=== PATIENT | female | born 1990 | race Caucasian/White ===

== ENCOUNTER 2018-08-20 07:50 | Inpatient (IN) | payer OTHER, SELFPAY ==
[2013-07-17 10:24] VITALS: BMI 31.5
[2018-08-20 08:15] VITALS: BMI 29.8
[2018-08-20] MEDS: Lactated Ringers 1,000 ML 50 ML IV (08:15)
[2018-08-20 08:33] LABS: Hematocrit 36.8 % (37-47); Mean Corp Hgb Conc 32.6 g/gl (32-36); Platelet Count 284 K/mm3 (150-450); RBC Distribution Width CV 14.9 % (11.6-14.6); RBC Distribution Width SD 49.1 fl (35.1-43.9); White Blood Count 18.6 K/mm3 (4.4-11.0)
[2018-08-20 08:34] LABS: Scan Indicated on CBC? Y/N NO
[2018-08-20] MEDS: Oxytocin 30 units/NS 500 ml 30 UNITS/500 ML IV.SOLN 334 UNITS IV ×2 (08:35→13:00)
--- NOTE | 2018-08-20 08:59 | PCM.OB.VAG ---
- Problem List (1) Active labor at term Status: Acute (2) History of depression Status: Acute (3) Herpes genitalis Status: Acute (4) Anemia Status: Acute Vaginal Delivery Maternal Presentation: Active Labor, Spontaneous Rupture of Membranes Amniotic Membrane Rupture Type: Spontaneous at home Rupture of Membrane time: Around 5 AM Amniotic Fluid Description: Clear Final GREER: 08/14/18 Gestational age: 40 Weeks and 6 Days Date of Procedure: 08/20/18 Pre-Operative Diagnosis: 40w6d gestation, active labor, SROM at home Post-Operative Diagnosis: As above Surgery/ Procedure Performed: Spontaneous Vaginal Delivery Type of Anesthesia: Local with 1% lidocaine Description of Procedure: Patient began having contractions this morning and believes her water broke for clear fluid around 5 AM. She presented at 8 cm dilated. Progressed quickly to complete. Pushed with 2 contractions and head, anterior shoulder, and posterior shoulder were delivered without force or delay. There was a loose nuchal cord x 2 around the infant's neck. Delivered through the nuchal cord. Viable female was placed on maternal abdomen. Cord was clamped and cut after 60 sec delay by the father the baby. Placenta was delivered intact with fundal massage. Placenta was noted to be normal with a three-vessel cord. She had a second-degree perineal laceration that was repaired in the usual fashion using 3-0 Vicryl after injecting 1% lidocaine. Estimated blood loss was 250 cc. Apgars were 9 and 10. Presentation: Vertex Placental Delivery Description: Expressed Cord Vessel Description: 3 Vessels Nuchal Cord Compression: Without compression Cord Entanglement: Around neck x 2, loose Estimated Blood Loss: 250 Infant A gender: Female (1 minute): 9 (5 minute): 10 Episiotomy Description: None Laceration: 2nd degree Medications given after delivery: IV Pitocin Complications: None
[2018-08-20] MEDS: Oxytocin 30 units/NS 500 ml 30 UNITS/500 ML IV.SOLN 167 UNITS IV (09:05)
--- NOTE | 2018-08-20 09:09 | HP.PCM_ITS ---
- Problem List (1) Active labor at term Status: Acute (2) History of depression Status: Acute (3) Herpes genitalis Status: Acute (4) Anemia Status: Acute History Date of Admission: 08/20/18 Final GREER: 08/14/18 Final GREER Source: [place] <20 weeks Gestational age: 40 Weeks and 6 Days History of this : This is a 28 year-old, G2, P1001, at 40 weeks gestational age who presented in labor at 8 cm dilated. She began having contractions this morning and SROM'd at home for clear fluid. Allergies No Known Allergies Allergy (Unverified 07/17/13 10:26) Home Medications: Home Medications Acetaminophen [Tylenol Extra Strength] 1,000 mg PO Q6H PRN PRN 07/17/13 Acyclovir [Zovirax] 400 mg PO BID 07/17/13 Naproxen [Naprosyn] 250 - 500 mg PO Q8H PRN PRN #60 tablet 07/17/13 Vits [Prenatabs FA ] 1 tablet PO DAILY 07/17/13 Senna/Docusate Sodium [Senokot-S] 1 - 2 tablet PO DAILY PRN PRN #20 tablet 07/17/13 Smoking Status: Never smoker Number of Fetus(es): 1 Heart Tracing: Category 1 History Past Pregnancies: Past Pregnancies Delivery Date Name GA/Weeks Outcome Route Weight Gender Labor Length Anesthesia Delivery Location Provider FOB term Labs: GBS neg, 1 hr GTT 107, GC/CT neg, UDS neg, Syphilis neg, RI, HepB neg, HIV NR, Rh pos, antibody screen neg Expected Infant Delivery Method: Spontaneous Vaginal Review of Systems Unable to obtain accurate/complete ROS d/t: Patient complete and pushing Physical Exam General: Alert, - - Uncomfortable with ctx's HEENT: Atraumatic Lungs: - - No increased resp effort Abdomen: Gravid Extremities:: No edema Neurological: Neuro grossly intact DISPATCHER REFINERY: Normal external genitalia Presentation: Cephalic Assessment/Plan All Active Problems Active labor at term (Acute) History of depression (Acute) Herpes genitalis (Acute) Anemia (Acute) This is a 28 year-old, G2, P1, at 40 weeks gestational age who presented in labor at 8 cm dilated and progressed quickly to complete. - Admitted for delivery - GBS neg - H/o HSV: Was on prophylaxis. Pt denies recent outbreak or prodromal symptoms, and no lesions noted on exam - Routine intrapartum care
[2018-08-20] MEDS: Ibuprofen 600 MG Tablet PO ×2 (09:33→18:23)
[2018-08-20] MEDS: Methylergonovine 0.2 MG/ML Ampul IM (11:22)
[2018-08-20] MEDS: HYDROmorphone 0.5 MG/0.5 ML SYRINGE IV (11:45)
[2018-08-20] MEDS: miSOPROStol 200 MCG Tablet 1000 MCG RECTAL (11:57)
--- NOTE | 2018-08-20 12:04 | PCM.PN.BLA ---
Progress Note RN called for heavy bleeding and clots. At bedside to examine patient. EBL of PPH 1000cc. Methergine x 1 given by RN. Vitals stable. Pt well appearing and has no complaints. Denies lightheadedness or dizziness. Fundus palpates firm at U. Discussed uterine exploration to assess for retained products and pt agreeable. Dilaudid 0.5mg IV x 1 given for pain control. External exam performed and no additional lacerations noted to be bleeding. Uterus explored x 1 with no retained products, and removal of about 800cc of blood and blood clot within the uterus. Fundus and lower uterine segment firm. Will check CBC in 1 hr and in the AM. Second bag of pitocin hung and 1000mcg of Cytotec placed rectally. Discussed with pt and bleeding likely secondary to 9lb infant and precipitous delivery. All questions answered.
[2018-08-20 13:06] VITALS: BP 103/66; PULSE 67; RESP 18; TEMP 36.9
[2018-08-20 14:52] LABS: Hematocrit 31.5 % (37-47); Hemoglobin 10.2 g/dl (12.0-15.0); Mean Corp Hgb Conc 32.4 g/gl (32-36); Mean Corpuscular Hgb 29.9 pg (27.0-32.0); Mean Corpuscular Volume 92.4 fL (81-99); Platelet Count 270 K/mm3 (150-450); RBC Distribution Width CV 15.1 % (11.6-14.6); Red Blood Count 3.41 M/mm3 (4.2-5.4); White Blood Count 25.6 K/mm3 (4.4-11.0)
[2018-08-20 14:53] LABS: Scan Indicated on CBC? Y/N NO
[2018-08-20 15:30] VITALS: BP 106/59; PULSE 76; RESP 18; TEMP 37.3
[2018-08-20] MEDS: 0.9% Saline Lock 10 ML Syringe IV (15:35)
[2018-08-20 20:37] VITALS: BP 99/60; PULSE 809; RESP 18; TEMP 36.4
[2018-08-20] MEDS: Acetaminophen 500 MG Tablet 1000 MG PO (21:05)
[2018-08-21] VITALS: BP 87/39; PULSE 61; RESP 16; TEMP 36.1; O2SAT 99
[2018-08-21 04:00] VITALS: BP 90/52; PULSE 65; RESP 18; TEMP 36.4
[2018-08-21] MEDS: Ibuprofen 600 MG Tablet PO ×2 (06:12→11:41)
[2018-08-21 06:20] LABS: Hematocrit 26.7 % (37-47); Hemoglobin 8.6 g/dl (12.0-15.0); Mean Corp Hgb Conc 32.2 g/gl (32-36); Mean Platelet Vol. 11.5 fl (6.2-12.0); Platelet Count 244 K/mm3 (150-450); RBC Distribution Width CV 14.9 % (11.6-14.6); RBC Distribution Width SD 48.4 fl (35.1-43.9); Red Blood Count 2.87 M/mm3 (4.2-5.4); White Blood Count 16.4 K/mm3 (4.4-11.0)
[2018-08-21 06:21] LABS: Scan Indicated on CBC? Y/N NO
--- NOTE | 2018-08-21 07:34 | PN.OBGYN_ITS ---
Patient Problems: Active and Suspected Problems Active labor at term (Acute) History of depression (Acute) Herpes genitalis (Acute) Anemia (Acute) Subjective: Patient is doing well today and she has no complaints. She feels ready to go home. She is breast-feeding without difficulty. She is ambulating without any lightheadedness or dizziness. She is spontaneously voiding without difficulty. Lochia has decreased and is normal. She is tolerating a diet without nausea or vomiting. She denies chest pain, shortness of breath, leg pain. - Physical Exam General: Alert, No apparent distress HEENT: Atraumatic Lungs: - - No increased resp effort Abdomen: Soft, Non Tender, - - FF@U-1 Extremities: No edema, No Calf Tenderness Skin: No rashes Neurological: Neuro grossly intact Psych/Mental Status: Normal Affect, Appropriate Vital Signs Temp Pulse Resp BP Pulse Ox 97.6 F L 65 18 90/52 L 99 08/21/18 04:00 08/21/18 04:00 08/21/18 04:00 08/21/18 04:00 08/21/18 00:00 Oxygen Delivery Method Room Air Weight: 184 lb 11.958 oz Body Mass Index (BMI) 29.8 Intake and Output for Last 24 Hours 08/19/18 08/20/18 08/21/18 23:59 23:59 23:59 Intake Total 2211 / 2211 Balance 2211 / 2211 Laboratory Tests Past 24 Hrs 08/20/18 08/20/18 08/20/18 08:15 08:15 13:10 WBC 18.6 H 25.6 H RBC 4.00 L 3.41 L Hgb 12.0 10.2 L Hct 36.8 L 31.5 L MCV 92.0 92.4 MCH 30.0 29.9 MCHC 32.6 32.4 RDW 14.9 H 15.1 H RDW Differential 49.1 H 51.0 H Plt Count 284 270 MPV 12.0 12.0 Blood Type O POSITIVE Antibody Screen NEGATIVE 08/21/18 06:05 WBC 16.4 H RBC 2.87 L Hgb 8.6 L Hct 26.7 L MCV 93.0 MCH 30.0 MCHC 32.2 RDW 14.9 H RDW Differential 48.4 H Plt Count 244 MPV 11.5 Blood Type Antibody Screen Medical Necessity - Tobacco Use Smoking Status: Never smoker Assessment/Plan All Active Problems Active labor at term (Acute) History of depression (Acute) Herpes genitalis (Acute) Anemia (Acute) PPD#1 s/p - Had precipitous delivery followed by PPH. VSS. Hgb 8.6 this AM from 12 pre- delivery. Pt has no symptoms of anemia and bleeding has decreased and is now normal lochia. Discussed with pt to continue iron supplement daily at home and reviewed bleeding precautions - Doing well - - PPBC: Condoms - Dispo: D/c home today. Reviewed discharge instructions with the pt
--- NOTE | 2018-08-21 07:34 | PCM.DCVAG ---
Discharge Diet: No Restrictions Discharge Activity: Return to Normal Activity, May Drive, May Shower May resume sexual activity in: 6 weeks Weight Bearing Status: Weight bearing as tolerated Lifting Restrictions: None Call your doctor if you observe: Fever of 101 or Higher, Inability to urinate, Inability to have a bowel movement, Using more than one pad per hour, Shortness of breath, Dizziness, Fainting spells, Chest pain, Increased palpitations (irregular heartbeat), Calf discomfort, Uncontrolled pain Cleanse incision/area with: Soap & Water Instructions: After a Vaginal Additional Instructions: If you experience any of the following, contact your healthcare provider. Bleeding that soaks a pad every hour for 2 hours Fever 100.4 or higher Unrelieved incision or abdominal pain Swelling, redness, discharge or bleeding from your incision or episiotomy site Your incision begins to separate Problems urinating (including inability to urinate or burning while urinating). Visual changes Severe headache Flu-like symptoms Pain or redness in one of both of your breasts Pain, warmth, tenderness or swelling in your legs, especially the calf area Frequent nausea and vomiting Symptoms of depression or anxiety If you experience any of the following, call 911 or go to the nearest Emergency Room. Chest pain Problems breathing Seizure activity Partial or complete paralysis of a body part, slurred speech, weakness or drooping of the face, or a sudden inability to walk or hold your balance Allergies/Adverse Reactions: Allergies No Known Allergies Allergy (Verified 08/20/18 10:07) Medications to take at Discharge Acyclovir [Zovirax] 400 mg PO BID 07/17/13 Vits [Prenatabs FA ] 1 tablet PO DAILY 07/17/13 Ascorbic Acid/Multivit-Min [Emergen-C 1,000 mg Packet] 1,000 mg PO 08/20/18 Famotidine [Pepcid] 20 mg PO DAILY 08/20/18 Ferrous Sulfate 325 mg PO 08/20/18 Please Follow Up With: Shani Marley DO When: In 4-6 weeks for a visit, and in 1-2 weeks if you would like to come in. Primary Care Physician: Care Physician,No Primary [Primary Care Provider] - Test Results: Test results from this visit will be discussed in further detail at your follow-up appointment, if applicable.
--- NOTE | 2018-08-21 07:37 | DCINST_ITS ---
Discharge Diet: No Restrictions Discharge Activity: Return to Normal Activity, May Drive, May Shower May resume sexual activity in: 6 weeks Weight Bearing Status: Weight bearing as tolerated Lifting Restrictions: None Call your doctor if you observe: Fever of 101 or Higher, Inability to urinate, Inability to have a bowel movement, Using more than one pad per hour, Shortness of breath, Dizziness, Fainting spells, Chest pain, Increased palpitations (irregular heartbeat), Calf discomfort, Uncontrolled pain Cleanse incision/area with: Soap & Water Instructions: After a Vaginal Additional Instructions: If you experience any of the following, contact your healthcare provider. * Bleeding that soaks a pad every hour for 2 hours * Fever 100.4 or higher * Unrelieved incision or abdominal pain * Swelling, redness, discharge or bleeding from your incision or episiotomy site * Your incision begins to separate * Problems urinating (including inability to urinate or burning while urinating). * Visual changes * Severe headache * Flu-like symptoms * Pain or redness in one of both of your breasts * Pain, warmth, tenderness or swelling in your legs, especially the calf area * Frequent nausea and vomiting * Symptoms of depression or anxiety If you experience any of the following, call 911 or go to the nearest Emergency Room. * Chest pain * Problems breathing * Seizure activity * Partial or complete paralysis of a body part, slurred speech, weakness or drooping of the face, or a sudden inability to walk or hold your balance Allergies/Adverse Reactions: Allergies No Known Allergies Allergy (Verified 08/20/18 10:07) Medications to take at Discharge Acyclovir [Zovirax] 400 mg PO BID 07/17/13 Vits [Prenatabs FA ] 1 tablet PO DAILY 07/17/13 Ascorbic Acid/Multivit-Min [Emergen-C 1,000 mg Packet] 1,000 mg PO 08/20/18 Famotidine [Pepcid] 20 mg PO DAILY 08/20/18 Ferrous Sulfate 325 mg PO 08/20/18 Please Follow Up With: Shani Marley DO When: In 4-6 weeks for a visit, and in 1-2 weeks if you would like to come in. Primary Care Physician: Care Physician,No Primary [Primary Care Provider] - Test Results: Test results from this visit will be discussed in further detail at your follow- up appointment, if applicable.
[2018-08-21 09:30] VITALS: BP 102/64; PULSE 75; RESP 16; TEMP 35.7
[2018-08-21 09:40] VITALS: BP 101/67; PULSE 74; RESP 17; RESP 18; TEMP 36
[2018-08-21] MEDS: Senna/Docusate Sodium 1 Tablet PO (11:41)
[2018-08-21 14:00] VITALS: BP 106/69; PULSE 82; RESP 16; TEMP 36.6
--- NOTE | 2018-08-21 14:15 | CASEMGMT ---
Social Work Referral Date: 08/20/18 Date of Assessment: 08/21/18 Reason for Consult: Mother of baby (MOB) with history of depression and suicidal ideation. Informant: MOB, Father of baby (FOB), Chart, and Nursing staff. Personal Status Mentation: MOB/FOB A&Ox3 Present during assessment: MOB, FOB, and Francis (MOB and FOB?s first child). Hx : 2 Hx Para: 1 Gender: Female Name: Lisa Carter (1min): 9 (5min): 10 Care: Adequate Alleged father: Mckinley Carter Alleged father involved: Yes Length of Relationship with alleged father of baby: MOB and FOB have been in a relationship since 2009 and have been for 4 years. Number of Children in the home: 1 and now this infant will make 2 children living at home with MOB and FOB. Custody Comments: MOB and FOB have full custody of first child, Francis and now this infant. Francis is 5 years old and shares maternity and paternity with this infant. Living Arrangements: MOB and FOB along with Francis and now this live in their own home. Education: MOB is working towards a [employer] education in nursing. Employment: MOB is currently unemployed and taking the semester off schooling to be with this infant and work through transition. FOJosesito works full-time at [employer] and is able to have flexible hours and can come and assist MOB during the day if needed. Family Dynamics/Relationships: MOB reporting a positive relationship with FOB. FOB then asked to leave the room. This forensic social worker then inquiring about MOB?s safety within the home. MOB denies any emotional or physical abuse. Supports: MOB identifies FOB and paternal grandparents as main supports. Substance Abuse Hx and Current Pattern of Use (FOB not present during below questions) Alcohol: MOB reports to drink wine socially prior to becoming with this infant. MOB defining socially as 1-2 glasses 2-4 days a week. Methamphetamine: MOB denies any abuse. Tobacco: MOB reporting to have a history of smoking. MOB defining history as back in 2011 and to have not smoked since then. Cocaine: MOB denies any abuse. Marijuana: MOB denies any abuse. Prescriptions Drugs: MOB denies any abuse. Heroin: MOB denies any abuse. Comment: MOB does have a negative tox screen on 18. No tox screen ordered for . Mental Health Hx and Current Status (FOB not present during below conversation/questions). Comment: This forensic social worker broaching topic of MOB?s history of depression. MOB confirming to have a history of depression back in 2011. MOB reporting to have made some poor life choices back in 2012 that include and over dose of Xanax and a suicidal attempt. MOB reporting to have then spent 3 days in an inpatient facility because of the suicide attempt. MOB denies any current thoughts or attempts of suicide and that the only attempt was in 2012. MOB is reporting to have had a serious of suicidal thoughts back in 2012 that lead to the suicide attempt. MOB able to identify safety factors such as FOB, Francis and now this infant. MOB reporting to want to keep living for MOB?s family and to be currently making better choices. MOB reporting to have had a negative influence from MOB?s mother. MOB reporting that MOB?s mother does not live around MOB and is not involved much in MOB?s life anymore. This forensic social worker inquiring if MOB has any concerns on returning to home. MOB identifying currently struggling with anxiety. This forensic social worker asking what triggers MOB?s anxiety. MOB reporting to get anxious when thinking about ability to be able to care for Francis and now this . MOB reporting that was planned for this infant and accepted. MOB reporting to have a history of counseling and that counseling did help in the past. This forensic social worker inquiring about setting up a counseling appointment for MOB in the next few weeks. MOB declining a counseling appointment. MOB reporting to be planning to discuss anxiety with primary care physician to see what, if any medications MOB would be able to take, as MOB is planning to breastfeed. MOB reporting to be able to work through anxiety by calling FOB and knowing that FOB is able to come and assist MOB if needed. MOB denies any history of depression with Francis. This forensic social worker did educate MOB on the risk factors associated with depression as well as signs and symptoms of depression. MOB open to this forensic social worker providing MOB with list of counseling agencies as well as information about depression. This forensic social worker also broached topic of Help me Grow as a support for MOB within the home. MOB is open to a Help Me Grow referral. MOB denies any current depression and is reporting to currently not be taking any antidepressants. This forensic social worker did also take time to identify MOB?s strength in bringing up anxiety as something that MOB is currently working though. Items/Skills List for Infants Care Supplies: MOB reporting to have all needed supplies including a crib, bassinet, diapers, cloths, and breast pump along with other needed supplies. Bonding With Infant: MOB reporting to feel a connection with infant. MOB reporting that connection is different with this then first but not identifying any negative attachment and to feel ?love? towards . Observed Maternal/Paternal Child interaction: in bassinet during conversation. MOB did look towards infant often during conversation. Emotional Assessment: MOB presenting with a positive affect and engaged in conversation. Control: MOB not sure at this time. Resources JFS: N/A WIC: N/A People to People: N/A Community Action: N/A Help Me Grow: Referral to be made. Children Protective Services Hx: N/A Transportation: MOB reporting no transportation concerns. Comments: MOB provided with education on safe sleeping, depression, Help Me Grow, counseling agencies, and support groups. Intervention: Help Me Grow referral made to PHYSIOLOGIST social work student. Plan: MOB and to discharge to home with MARCK Rolon
--- NOTE | 2018-08-21 14:38 | CASEMGMT ---
Addendum entered by Sarah Barraza 08/21/18 17:30: Reviewed and approved below SEO TEAM LEAD social work student documentation. MARCK Stafford Original Note: Social Work Labor and Delivery Electronically and securely completed a Help Me Grow referral through [facility] for this family's . No other services needed or indicated. -Emani Ramos, SEO TEAM LEAD Student Supervisor [employer].
--- OUTSIDE RECORDS SUMMARY | 2018-10-22 15:35 | XMS RPT_ITS ---
:1990 Author Organization OHIP Care Team Providers Name Role Phone Yulia Marley Admitting Unavailable Wiswell Yulia Attending Unavailable Ayaka, Yulia Referring Unavailable Primay Care Physicia, No Primary Care Unavailable BROOKE CHOUDHARY Attending Unavailable BROOKE CHOUDHARY Referring Unavailable SABINO DIA (CNM) Attending Unavailable SOUTH SABINO (CNM) Referring Unavailable GABBY, MARIA DE JESUS (CNM) Attending Unavailable SOUTH SABINO (CNM) Attending Unavailable DIA SABINO (CNM) Referring Unavailable ADELINA HELMS Attending Unavailable SOUTH SABINO (CNM) Referring Unavailable NEYKATHRYN MANSFIELD Attending Unavailable WISWELL, YULIA Attending Unavailable WISWELL, YULIA Referring Unavailable DIA, SABINO (CNM) Attending Unavailable GABBY, MARIA DE JESUS (CNM) Attending Unavailable DIA, SABINO (CNM) Attending Unavailable WISWELL, YULIA Attending Unavailable GABBY, MARIA DE JESUS (CNM) Attending Unavailable GABBY, MARIA DE JESUS (CNM) Referring Unavailable DIA, SABINO (CNM) Attending Unavailable GABBY, MARIA DE JESUS (CNM) Attending Unavailable GABBY, MARIA DE JESUS (CNM) Attending Unavailable DIA, SABINO (CNM) Attending Unavailable DIA, SABINO (CNM) Attending Unavailable GABBY, MARIA DE JESUS (CNM) Attending Unavailable PROBLEMS PROBLEMS DATE TYPE CONDITION / CODE ATTENDING STATUS SOURCE 06/15/2018 Active Anemia NA Active [facility] complicating [facility] , third Repository trimester / O99.013(ICD-10) 05/15/2018 Active 27 weeks gestation NA Active [facility] of / [facility] Z3A.27(ICD-10) Repository 04/20/2018 Active Unknown / NEYHART Active [facility] UNK(Unknown) EL, [facility] KATHRYN Repository 02/05/2018 Active 12 weeks gestation NA Active [facility] of / [facility] Z3A.12(ICD-10) Repository 01/11/2018 Active 9 weeks gestation NA Active [facility] of / [facility] Z3A.09(ICD-10) Repository 01/11/2018 Active Encounter for NA Active [facility] supervision of [facility] normal first Repository , first trimester / Z34.01(ICD-10) PROCEDURES PROCEDURES No Procedure Records FoundRESULTS RESULTS PROGRESS Observed: 08/23/2018 Status: COMPLETED Source: [place] 10:45 AM [facility] REPOSITORY HNO ID: [id number] Author: Lyndsey Nickerson LPN Service: (none) Author Type: (none) Type: Progress Notes Filed: 08/23/2018 10:48 AM Note Text: Pt delivered via at [facility] on 08/20/[address] Marley. See Ob Outcome note. Pt called and scheduled her 6wk PP appt and had no voiced c/o documented. Lyndsey Nickerson LPN DISCHARGE INSTRUCTION Observed: 08/21/2018 Status: F Source: [place] 7:37 AM [facility] REPOSITORY [facility] Medical Records Department [address] [place] [address] Instructions for Home/Discharge Instructions 08/21/18 0734 MR#: [id number] Acct: [id number] Name: IVETTE SADLER Rep #: [id number] : 1990 28 From: Yulia Marley DO PCP: Care Physician, No Primary Status: ADM IN Discharge Diet: No Restrictions Discharge Activity: Return to Normal Activity, May Drive, May Shower May resume sexual activity in: 6 weeks Weight Bearing Status: Weight bearing as tolerated Lifting Restrictions: None Call your doctor if you observe: Fever of 101 or Higher, Inability to urinate, Inability to have a bowel movement, Using more than one pad per hour, Shortness of breath, Dizziness, Fainting spells, Chest pain, Increased palpitations (irregular heartbeat), Calf discomfort, Uncontrolled pain Cleanse incision/area with: Soap AND Water Instructions: After a Vaginal Additional Instructions: If you experience any of the following, contact your healthcare provider. * Bleeding that soaks a pad every hour for 2 hours * Fever 100.4 or higher * Unrelieved incision or abdominal pain * Swelling, redness, discharge or bleeding from your incision or episiotomy site * Your incision begins to separate * Problems urinating (including inability to urinate or burning while urinating). * Visual changes * Severe headache * Flu-like symptoms * Pain or redness in one of both of your breasts * Pain, warmth, tenderness or swelling in your legs, especially the calf area * Frequent nausea and vomiting * Symptoms of depression or anxiety If you experience any of the following, call 911 or go to the nearest Emergency Room. * Chest pain * Problems breathing * Seizure activity * Partial or complete paralysis of a body part, slurred speech, weakness or drooping of the face, or a sudden inability to walk or hold your balance Allergies/Adverse Reactions: Allergies No Known Allergies Allergy (Verified 08/20/18 10:07) Medications to take at Discharge Acyclovir [Zovirax] 400 mg PO BID 07/17/13 Vits [Prenatabs FA ] 1 tablet PO DAILY 07/17/13 Ascorbic Acid/Multivit-Min [Emergen-C 1,000 mg Packet] 1,000 mg PO 08/20/18 Famotidine [Pepcid] 20 mg PO DAILY 08/20/18 Ferrous Sulfate 325 mg PO 08/20/18 Please Follow Up With: Yulia Marley DO When: In 4-6 weeks for a visit, and in 1-2 weeks if you would like to come in. Primary Care Physician: Care Physician,No Primary [Primary Care Provider] - Test Results: Test results from this visit will be discussed in further detail at your follow-up appointment, if applicable. 08/21/18 0737 <Electronically signed by Yulia Marley DO> Date Yulia Marley DO CC: No Primary Care Physician Signed CBC-COMPLETE BLOOD CNT Collected: 08/21/2018 Status: F Source: [place] NO DIFF 6:05 AM [facility] REPOSITORY TYPE CODE TESTS RESULT OUT OF RANGE REFERENCE UNITS LAB L100.1000 4.4-11.0 K/mm3 High WBC 16.4 LAB L100.1200 4.2-5.4 M/mm3 Low RBC 2.87 LAB L100.1300 12.0-15.0 g/dl Low HGB 8.6 LAB L100.1400 37-47 % Low HCT 26.7 LAB L100.1500 81-99 fL Normal MCV 93.0 LAB L100.1600 27.0-32.0 pg Normal MCH 30.0 LAB L100.1700 32-36 g/gl Normal MCHC 32.2 LAB L100.1810 11.6-14.6 % High RDW CV 14.9 LAB L100.1820 35.1-43.9 fl High RDW SD 48.4 LAB L100.1900 150-450 K/mm3 Normal PLT 244 LAB L100.2000 6.2-12.0 fl Normal MPV 11.5 Performed By: #### L100.0500 #### [facility] [address] [place] [address]. [place], [place], [address] CBC-COMPLETE BLOOD CNT Collected: 08/20/2018 Status: F Source: [place] 1:10 PM [facility] REPOSITORY TYPE CODE TESTS RESULT OUT OF RANGE REFERENCE UNITS LAB L100.1000 4.4-11.0 K/mm3 High WBC 25.6 LAB L100.1200 4.2-5.4 M/mm3 Low RBC 3.41 LAB L100.1300 12.0-15.0 g/dl Low HGB 10.2 LAB L100.1400 37-47 % Low HCT 31.5 LAB L100.1500 81-99 fL Normal MCV 92.4 LAB L100.1600 27.0-32.0 pg Normal MCH 29.9 LAB L100.1700 32-36 g/gl Normal MCHC 32.4 LAB L100.1810 11.6-14.6 % High RDW CV 15.1 LAB L100.1820 35.1-43.9 fl High RDW SD 51.0 LAB L100.1900 150-450 K/mm3 Normal PLT 270 LAB L100.2000 6.2-12.0 fl Normal MPV 12.0 Performed By: #### L100.0500 #### [facility] [address] [place], [address] HISTORY AND PHYSICAL Observed: 08/20/2018 Status: F Source: [place] EXAM 9:11 AM [facility] REPOSITORY [facility] Medical Records Department [address] [place] [address] History and Physical 08/20/18 0905 MR#: [id number] Acct: [id number] Name: IVETTE SADLER Rep #: [id number] : 1990 28 From: Yulia Marley DO PCP: Care Physician, No Primary Status: ADM IN Y Location: [place] [id number] - Problem List (1) Active labor at term Status: Acute (2) History of depression Status: Acute (3) Herpes genitalis Status: Acute (4) Anemia Status: Acute History Date of Admission: 08/20/18 Final GREER: 08/14/18 Final GREER Source: US <20 weeks Gestational age: 40 Weeks and 6 Days History of this : This is a 28 year-old, G2, P1001, at 40 weeks gestational age who presented in labor at 8 cm dilated. She began having contractions this morning and SROM'd at home for clear fluid. Allergies No Known Allergies Allergy (Unverified 07/17/13 10:26) Home Medications: Home Medications Acetaminophen [Tylenol Extra Strength] 1,000 mg PO Q6H PRN PRN 07/17/13 Acyclovir [Zovirax] 400 mg PO BID 07/17/13 Naproxen [Naprosyn] 250 - 500 mg PO Q8H PRN PRN #60 tablet 07/17/13 Vits [Prenatabs FA ] 1 tablet PO DAILY 07/17/13 Senna/Docusate Sodium [Senokot-S] 1 - 2 tablet PO DAILY PRN PRN #20 tablet 07/17/13 Smoking Status: Never smoker Number of Fetus(es): 1 Heart Tracing: Category 1 History Past Pregnancies: Past Pregnancies Delivery Name GA/Weeks Outcome Route WeiInfant GeLabor LenAnesthesiDelivery Provider FOB Date ght nder gth a Location Labs: GBS neg, 1 hr GTT 107, GC/CT neg, UDS neg, Syphilis neg, RI, HepB neg, HIV NR, Rh pos, antibody screen neg Expected Infant Delivery Method: Spontaneous Vaginal Review of Systems Unable to obtain accurate/complete ROS d/t: Patient complete and pushing Physical Exam General: Alert, - - Uncomfortable with ctx's HEENT: Atraumatic Lungs: - - No increased resp effort Abdomen: Gravid Extremities:: No edema Neurological: Neuro grossly intact MULTI DISCIPLINED LANGUAGE ANALYST: Normal external genitalia Presentation: Cephalic Assessment/Plan All Active Problems Active labor at term (Acute) History of depression (Acute) Herpes genitalis (Acute) Anemia (Acute) This is a 28 year-old, G2, P1, at 40 weeks gestational age who presented in labor at 8 cm dilated and progressed quickly to complete. - Admitted for delivery - GBS neg - H/o HSV: Was on prophylaxis. Pt denies recent outbreak or prodromal symptoms, and no lesions noted on exam - Routine intrapartum care 08/20/18 0911 <Electronically signed by Yulia Marley DO> Date Yulia Marley DO Cosigner Signature: Date (if applicable) CC: No Primary Care Physician; Yulia Marley DO Signed OPERATIVE REPORT Observed: 08/20/2018 Status: F Source: [place] 9:05 AM [facility] REPOSITORY [facility] Medical Records Department [address] [place] [address] Operative Report 08/20/18 0859 MR#: [id number] Acct: [id number] Name: IVETTE SADLER Rep #: [id number] : 1990 28 From: Yulia Marley DO PCP: Care Physician, No Primary Status: ADM IN Y Location: [id number] - Problem List (1) Active labor at term Status: Acute (2) History of depression Status: Acute (3) Herpes genitalis Status: Acute (4) Anemia Status: Acute Vaginal Delivery Maternal Presentation: Active Labor, Spontaneous Rupture of Membranes Amniotic Membrane Rupture Type: Spontaneous at home Rupture of Membrane time: Around 5 AM Amniotic Fluid Description: Clear Final GREER: 08/14/18 Gestational age: 40 Weeks and 6 Days Date of Procedure: 08/20/18 Pre-Operative Diagnosis: 40w6d gestation, active labor, SROM at home Post-Operative Diagnosis: As above Surgery/ Procedure Performed: Spontaneous Vaginal Delivery Type of Anesthesia: Local with 1% lidocaine Description of Procedure: Patient began having contractions this morning and believes her water broke for clear fluid around 5 AM. She presented at 8 cm dilated. Progressed quickly to complete. Pushed with 2 contractions and head, anterior shoulder, and posterior shoulder were delivered without force or delay. There was a loose nuchal cord x 2 around the infant's neck. Delivered through the nuchal cord. Viable female infant was placed on maternal abdomen. Cord was clamped and cut after 60 sec delay by the father the baby. Placenta was delivered intact with fundal massage. Placenta was noted to be normal with a three-vessel cord. She had a second-degree perineal laceration that was repaired in the usual fashion using 3- 0 Vicryl after injecting 1% lidocaine. Estimated blood loss was 250 cc. Apgars were 9 and 10. Presentation: Vertex Placental Delivery Description: Expressed Cord Vessel Description: 3 Vessels Nuchal Cord Compression: Without compression Cord Entanglement: Around neck x 2, loose Estimated Blood Loss: 250 A gender: Female (1 minute): 9 (5 minute): 10 Episiotomy Description: None Laceration: 2nd degree Medications given after delivery: IV Pitocin Complications: None 08/20/18 0905 <Electronically signed by Yulia Marley DO> Date Yulia Marley DO CC: No Primary Care Physician; Yulia Marley DO Signed CBC-COMPLETE BLOOD CNT Collected: 08/20/2018 Status: F Source: [place] 8:15 AM [facility] REPOSITORY TYPE CODE TESTS RESULT OUT OF RANGE REFERENCE UNITS LAB L100.1000 4.4-11.0 K/mm3 High WBC 18.6 LAB L100.1200 4.2-5.4 M/mm3 Low RBC 4.00 LAB L100.1300 12.0-15.0 g/dl Normal HGB 12.0 LAB L100.1400 37-47 % Low HCT 36.8 LAB L100.1500 81-99 fL Normal MCV 92.0 LAB L100.1600 27.0-32.0 pg Normal MCH 30.0 LAB L100.1700 32-36 g/gl Normal MCHC 32.6 LAB L100.1810 11.6-14.6 % High RDW CV 14.9 LAB L100.1820 35.1-43.9 fl High RDW SD 49.1 LAB L100.1900 150-450 K/mm3 Normal PLT 284 LAB L100.2000 6.2-12.0 fl Normal MPV 12.0 Performed By: #### L100.0500 #### [facility] [address] [facility]. [place], [place], [address] TYPE AND SCREEN Collected: 08/20/2018 Status: F Source: [place] 8:15 AM [facility] REPOSITORY Order Comment: Reason for Type AND Screen/Red Cells: ROUTINE TYPE CODE TESTS RESULT OUT OF RANGE REFERENCE UNITS LAB B10.0800 O Normal BLOOD TYPE GEL POSITIVE LAB B100.4000 Normal Antibody NEGATIVE Screen Performed By: #### B101.7450 #### [facility] [address] [facility]. [place], [place], [address] GROUP B STREP PCR Collected: 07/20/2018 Status: F Source: [place] 3:27 PM [facility] REPOSITORY TYPE CODE TESTS RESULT OUT OF REFERENCE UNITS RANGE LAB GBPCRT Negative for GROUP Group B B STREP PCR Streptococcus by PCR. Performed By: #### GBPCR #### [facility] [address] [place], [place] [address] CBC AND DIFFERENTIAL Collected: 07/13/2018 Status: F Source: [place] 11:27 AM [facility] REPOSITORY TYPE CODE TESTS RESULT OUT OF REFERENCE UNITS RANGE LAB WBC 3.70-11.00 k/uL WBC High 12.20 LAB RBC 3.90-5.20 m/uL Low RBC 3.39 LAB HGB 11.5-15.5 g/dL Low Hemoglobin 10.2 LAB HCT 36.0-46.0 % Low Hematocrit 32.8 LAB MCV 80.0-100.0 fL MCV 96.8 LAB MCH 26.0-34.0 pG MCH 30.1 LAB MCHC 30.5-36.0 g/dL MCHC 31.1 LAB RDWCV 11.5-15.0 % RDW-CV 13.3 LAB PLTCT 150-400 k/uL Platelet Count 282 LAB MPV 9.0-12.7 fL MPV 12.5 LAB ANEUT % Neut% 65.7 LAB AANEUT 1.45-7.50 k/uL Abs Neut High 8.00 LAB ALYMP % Lymph% 23.9 LAB AALYMP 1.00-4.00 k/uL Abs Lymph 2.92 LAB AMONO % Guadalupe% 9.8 LAB AAMONO <0.87 k/uL Abs Guadalupe High 1.20 LAB AEOS % Eosin% 0.4 LAB AAEOS <0.46 k/uL Abs Eosin 0.05 LAB ABASO % Baso% 0.2 LAB AABASO <0.11 k/uL Abs Baso 0.03 LAB AUNRBC 0 /100 WBC NRBCs 0.0 LAB ABNRBC <0.01 k/uL Absolute nRBC <0.01 LAB DTYP DTYPE Auto Diff Performed By: #### CBCDIF #### [facility] [address] [place], [place] [address] PROGRESS Observed: 07/13/2018 Status: COMPLETED Source: [place] 10:38 [facility] REPOSITORY HNO ID: [id number] Author: Emily ePrez Ma Service: (none) Author Type: (none) Type: Progress Notes Filed: 07/13/2018 2:05 PM Note Text: Patient identified by name and date of . Ivette Sadler presents today for a vaccination of Tdap. Patient denies an allergy to latex: yes Patient denies a severe (life-threatening) allergy to a previous dose of Tdap, DTP, DTaP, DT or Td vaccine. Yes Patient denies history of epilepsy or neurological problems: Yes Patient is afebrile and denies being moderately or severely ill: Yes Patient denies history of Guillain-Meddybemps Syndrome (a severe paralytic illness): Yes Tdap Adacel injection was given without incident. See immunizations for details of immunizations administered today. VIS sheet provided: Yes Provider Maria De Jesus Chau CNM was present in office at time of injection. Emily Perez Ma PROGRESS Observed: 07/10/2018 Status: COMPLETED Source: [place] 4:48 PM [facility] REPOSITORY HNO ID: [id number] Author: Yulia Marley Service: (none) Author Type: Physician Type: Progress Notes Filed: 07/10/2018 5:12 PM Note Text: Ivette Sadler is a 28 year old female who presents for add on visit for DFM at 35 wk gestation. HPI: Has had DFM all day. No ctx, vb, lof. PAST MEDICAL HISTORY Diagnosis Date - Anemia complicating , third trimester 06/15/2018 - DEPRESSION with hx of suicide attempts - FRACTURE LEFT HAND - Herpes simplex of female genitalia 03/22/2013 - History of umbilical hernia - PID (acute pelvic inflammatory disease) - Scoliosis REVIEW OF SYSTEMS Abdomen: No abdominal pain, nausea, vomiting, diarrhea, or constipation. City Constable: No ctx, VB, LOF Expanded ROS: N/A Allergies and current medication updated:Yes EXAM: BP 106/60 Wt 183 lb 9.6 oz (83.3kg) LMP 11/07/2017 GENERAL: pleasant, female in no apparent distress HEENT: Normocephalic and atraumatic NECK: full range of motion DERMATOLOGY: Normal and without lesions CHEST: Normal inspiratory effort ABDOMEN: soft, non-tender and no masses, gravid, measuring 35 weeks NEURO: exam grossly non-focal EXTREMITIES: normal ASSESSMENT AND PLAN: Encounter Diagnosis ICD-10-CM 1. 35 weeks gestation of Z3A.35 URINE OB DIP B/O famotidine (PEPCID) 20 mg tablet DISCONTINUED: famotidine (PEPCID) 20 mg tablet 2. Decreased movements in third trimester, single or unspecified fetus O36.8130 NON-STRESS TEST 3. Gastroesophageal reflux disease without esophagitis K21.9 famotidine (PEPCID) 20 mg tablet DISCONTINUED: famotidine (PEPCID) 20 mg tablet ? DFM: NST reactive and reassuring. Reviewed kick counts. She is now feeling good FM ? GERD: Pepcid rx sent to pharmacu ? Return for scheduled visit Yulia Marley DO CNOV Observed: 07/10/2018 Status: COMPLETED Source: [place] 4:20 PM [facility] REPOSITORY Office Visit (WOOB) IVETTE SADLER ([id number]) 1990 F Date Time Provider Department 07/10/18 4:20 PM YULIA MARLEY During your visit today, we recorded the following information about you: Blood pressure Weight 106/60 83.3 kg Jesusita Bradshaw MA 07/10/2018 4:31 PM Signed SEQUENTIAL SCREENINGS The [facility] offers sequential screenings for women who are interested in screenings for chromosomal abnormalities and certain defects during a . The sequential screen combines ultrasound and blood tests to determine the risk of chromosomal abnormalities, including Down's Syndrome (Trisomy 21) and Trisomy 18, as well as open neural tube defects including spina bifida. Ultrasound examination is performed between 11 weeks and 13 weeks gestational age. Blood tests are drawn after the ultrasound and again later in the between 15 and 21 weeks gestational age. Please let your physician know if you are interested in this testing. It will require an appointment with our diazo technician. This is not an ultrasound performed by a physician in our office during a routine visit. SIGNS AND SYMPTOMS OF LABOR 1. Contractions every 10 minutes or more often 2. Clear, pink, or brownish fluid (water) leaking from vagina 3. Feeling that baby is pushing down, pressure 4. Low, dull backache 5. Cramps that feel like a period 6. Cramps with or without diarrhea If you notice any of the above symptoms, contact our office at [phone] and ask to speak with a nurse. After hours, you can call doctors registry at [phone] OR call [facility] at [phone] and ask to have the doctor licensed nuclear control room operator paged. If you consider this an emergency, dial [phone] or go to your nearest emergency department. NEED HELP? Are you dealing with a violent or abusive relationship? Are you a victim of rape or sexual assult? Call [facility] 24 hour Crisis Hotline: 829.754.1825 or 851-311-5657. MANUAL Your Guide to a Healthy manual is now on-line. Visit [email or web address] to download your free copy Yulia Marley MD 07/10/2018 5:12 PM Signed Ivette Sadler is a 28 year old female who presents for add on visit for DFM at 35 wk gestation. HPI: Has had DFM all day. No ctx, vb, lof. PAST MEDICAL HISTORY Diagnosis Date - Anemia complicating , third trimester 06/15/2018 - DEPRESSION with hx of suicide attempts - FRACTURE LEFT HAND - Herpes simplex of female genitalia 03/22/2013 - History of umbilical hernia - PID (acute pelvic inflammatory disease) - Scoliosis REVIEW OF SYSTEMS Abdomen: No abdominal pain, nausea, vomiting, diarrhea, or constipation. City Constable: No ctx, VB, LOF Expanded ROS: N/A Allergies and current medication updated:Yes EXAM: BP 106/60 Wt 183 lb 9.6 oz (83.3kg) LMP 11/07/2017 GENERAL: pleasant, female in no apparent distress HEENT: Normocephalic and atraumatic NECK: full range of motion DERMATOLOGY: Normal and without lesions CHEST: Normal inspiratory effort ABDOMEN: soft, non-tender and no masses, gravid, measuring 35 weeks NEURO: exam grossly non-focal EXTREMITIES: normal ASSESSMENT AND PLAN: Encounter Diagnosis ICD-10-CM 1. 35 weeks gestation of Z3A.35 URINE OB DIP B/O famotidine (PEPCID) 20 mg tablet DISCONTINUED: famotidine (PEPCID) 20 mg tablet 2. Decreased movements in third trimester, single or unspecified fetus O36.8130 NON-STRESS TEST 3. Gastroesophageal reflux disease without esophagitis K21.9 famotidine (PEPCID) 20 mg tablet DISCONTINUED: famotidine (PEPCID) 20 mg tablet ? DFM: NST reactive and reassuring. Reviewed kick counts. She is now feeling good FM ? GERD: Pepcid rx sent to pharmacu ? Return for scheduled visit Yulia Marley DO Referring Provider: SELF [200] Allergies As of Date: 07/10/2018 (No Known Allergies) Date Reviewed: 07/10/2018 Reviewed by: Jesusita Bradshaw - Fully Assessed Reason for Visit: Care [86] Primary Visit Diagnosis:35 weeks gestation of [Z3A.35] Other Visit Diagnoses:Decreased movements in third trimester, single or unspecified fetus [O36.8130] Gastroesophageal reflux disease without esophagitis [K21.9] Order(s):URINE OB DIP B/O [[id number]] Order #: [id number] NON-STRESS TEST [[id number]] Order #: [id number] famotidine (PEPCID) 20 mg tabletTake 1 tablet by mouth twice daily.Disp: 60 tabletRfl: 1 Prescriptions as of 07/10/2018 Sig: ACETAMINOPHEN 325 MG TABLET Take 650 mg by mouth every 6 * ACYCLOVIR 400 MG TABLET Take 1 tablet by mouth three * TUMS ORAL Take by mouth. FERROUS SULFATE 325 MG (65 MG* Take 1 tablet by mouth twice * VITAMIN,CALCIUM,MINE* Take 1 tablet by mouth. FAMOTIDINE 20 MG TABLET Take 1 tablet by mouth twice * PROMETHAZINE 25 MG TABLET Take 1 tablet by mouth every * Patient not taking: Reported on 06/01/2018 Problem List As Of Date 07/10/2018 Noted Resolved with care elsewhere [Z34.90] INVALID FOR*12/02/2015 More... Quit smoking [Z87.891] INVALID FOR*02/05/2018 More... History of depression [Z86.59] INVALID FOR* More... History of herpes genitalis [Z86.19] INVALID FOR* More... Family history of defect [Z82.79] INVALID FOR* More... Immunization history incomplete INVALID FOR* More... Rubella immune status not known [Z78.9] INVALID FOR*03/01/2018 More... Herpes simplex of female genitalia [A60.09] INVALID FOR*06/10/2013 Supervision of normal first [Z34.00] INVALID FOR*12/02/2015 Supervision of with history of infert*INVALID FOR* More... History of umbilical hernia [Z87.19] INVALID FOR* Anemia complicating , third trimester *INVALID FOR* More... Other instructions from your clinician: SEQUENTIAL SCREENINGS The [facility] offers sequential screenings for women who are interested in screenings for chromosomal abnormalities and certain defects during a . The sequential screen combines ultrasound and blood tests to determine the risk of chromosomal abnormalities, including Down's Syndrome (Trisomy 21) and Trisomy 18, as well as open neural tube defects including spina bifida. Ultrasound examination is performed between 11 weeks and 13 weeks gestational age. Blood tests are drawn after the ultrasound and again later in the between 15 and 21 weeks gestational age. Please let your physician know if you are interested in this testing. It will require an appointment with our diazo technician. This is not an ultrasound performed by a physician in our office during a routine visit. SIGNS AND SYMPTOMS OF LABOR 1. Contractions every 10 minutes or more often 2. Clear, pink, or brownish fluid (water) leaking from vagina 3. Feeling that baby is pushing down, pressure 4. Low, dull backache 5. Cramps that feel like a period 6. Cramps with or without diarrhea If you notice any of the above symptoms, contact our office at [phone] and ask to speak with a nurse. After hours, you can call doctors registry at [phone] OR call [facility] at [phone] and ask to have the doctor licensed nuclear control room operator paged. If you consider this an emergency, dial 1-4 or go to your nearest emergency department. NEED HELP? Are you dealing with a violent or abusive relationship? Are you a victim of rape or sexual assult? Call [facility]) 24 hour Crisis Hotline: 835.357.1325 or 270-581-6329. MANUAL Your Guide to a Healthy manual is now on-line. Visit [email or web address] to download your free copy Prescriptions ordered this encounter Disp Refills Start End FAMOTIDINE 20 MG TABLET 60 t* 0 07/10/2018 07/10/2018 Route: ORAL Sig: Take 1 tablet by mouth twice daily. Disc: Other FAMOTIDINE 20 MG TABLET 60 t* 1 07/10/2018 Route: ORAL Sig: Take 1 tablet by mouth twice daily. Medications Discontinued During This Encounter famotidine/Ca carb/mag hydrox (PEPCI* 07/10/2018 Class: Historical Med Route: ORAL Sig: Take by mouth. Disc: Other famotidine (PEPCID) 20 mg tablet 60 t* 0 07/10/2018 07/10/2018 Route: ORAL Sig: Take 1 tablet by mouth twice daily. Disc: Other Level of Service: EST PATIENT VISIT LEVEL 2 [[id number]] Encounter Status:Closed by YULIA MARLEY MD on 07/10/18 PROGRESS Observed: 05/17/2018 Status: COMPLETED Source: [place] 10:43 AM [facility] REPOSITORY HNO ID: [id number] Author: Yulia Marley Service: (none) Author Type: Physician Type: Progress Notes Filed: 05/17/2018 10:43 AM Note Text: Can you please let the pt know she has anemia, and an rx for iron was sent to pharmacy to start today. Thank you! CBC AND DIFFERENTIAL Collected: 05/15/2018 Status: F Source: [place] 3:26 PM [facility] REPOSITORY TYPE CODE TESTS RESULT OUT OF REFERENCE UNITS RANGE LAB WBC 3.70-11.00 k/uL WBC High 14.99 LAB RBC 3.90-5.20 m/uL Low RBC 3.19 LAB HGB 11.5-15.5 g/dL Low Hemoglobin 10.2 LAB HCT 36.0-46.0 % Low Hematocrit 31.7 LAB MCV 80.0-100.0 fL MCV 99.4 LAB MCH 26.0-34.0 pG MCH 32.0 LAB MCHC 30.5-36.0 g/dL MCHC 32.2 LAB RDWCV 11.5-15.0 % RDW-CV 13.6 LAB PLTCT 150-400 k/uL Platelet Count 226 LAB MPV 9.0-12.7 fL MPV 12.0 LAB ANEUT % Neut% 75.3 LAB AANEUT 1.45-7.50 k/uL Abs Neut High 11.28 LAB ALYMP % Lymph% 18.0 LAB AALYMP 1.00-4.00 k/uL Abs Lymph 2.70 LAB AMONO % Guadalupe% 6.3 LAB AAMONO <0.87 k/uL Abs Guadalupe High 0.95 LAB AEOS % Eosin% 0.2 LAB AAEOS <0.46 k/uL Abs Eosin 0.03 LAB ABASO % Baso% 0.2 LAB AABASO <0.11 k/uL Abs Baso 0.03 LAB AUNRBC 0 /100 WBC NRBCs 0.0 LAB ABNRBC <0.01 k/uL Absolute nRBC <0.01 LAB DTYP DTYPE Auto Diff Performed By: #### CBCDIF #### [facility] [address] [id number] TB BY QUANTIFERON Collected: 05/15/2018 Status: F Source: [place] 3:26 PM [facility] [place] REPOSITORY TYPE CODE TESTS RESULT OUT OF REFERENCE UNITS RANGE LAB TBGNIL IU/mL TB NIL 0.02 LAB TBG1AG <0.35 IU/mL TB1 Ag minus 0.01 Nil LAB TBG2AG <0.35 IU/mL TB2 Ag minus 0.01 Nil LAB TBMITN Mitogen minus >10 Nil LAB TBGRES Negative TB Result Negative LAB TBGINT Interpretation No evidence of current or previous infection with Mycobacterium tuberculosis. Performed By: #### INFTBP #### [facility] [address] [address] 50G, 1HR GEST. Collected: 05/15/2018 Status: F Source: [place] GSCRN 3:25 PM [facility] REPOSITORY TYPE CODE TESTS RESULT OUT OF REFERENCE UNITS RANGE LAB GLUP 74-134 mg/dL Glucose 107 Screen, Preg Result Comment: [place] Congress of Obstetricians and Gynecologists (Raymond/Jovan) guidelines state a gestational diabetes mellitus positive screen is made, in women not previously diagnosed with overt diabetes, when the 1 hr plasma glucose level is equal to or above 140 mg/dL. The [facility] and [facility] [place] recommends a 135 mg/dL cutoff. Performed By: #### GLTGST #### [facility] [address] [id number] PROGRESS Observed: 04/20/2018 Status: COMPLETED Source: [place] 3:05 PM [facility] REPOSITORY HNO ID: [id number] Author: Sheron Mitchell Ma Service: (none) Author Type: (none) Type: Progress Notes Filed: 04/20/2018 3:43 PM Note Text: 28 year old female here for INACTIVATED INFLUENZA VACCINE. 2172-4147 Season Patient is identified by name and date of : Yes [] CONTRAINDICATIONS color enhanced section Age less than 6 months? No Allergy to eggs, chicken, chicken feathers, or chicken dander? No Allergy to thimerosal (a preservative) or formaldehyde, gelatin? No History of severe reaction to any vaccine component or a previous dose of influenza vaccination? No History of Guillain-Meddybemps Syndrome within 6 weeks after a previous influenza vaccine? No Patient is not moderately or severely ill? No Current temperature greater or equal to 100.4F? No History of Bone Marrow Transplant prior 6 months or solid organ transplant in the past 3 months ? No History of fainting after a prior injection or medical procedure? No- ? If patient has fainted in the past, the CDC recommends sitting or lying down for 15 minutes after the vaccination. [] VERIFICATION color enhanced section Was the answer Yes for any of the above contraindications? No contraindications present. Acceptable to proceed with vaccine. Patient/guardian agrees the above answers are true to the best of their knowledge? Yes Flu vaccine information sheet given? Yes See immunization activity in [facility] for details of immunizations adminstered today. Patient age: [age] year old For The 5629-9675 Flu Season 6-35 months old: Fluzone 0.25 ml - IM (Preservative Free) 3 years of age: Fluzone 0.5 ml - IM (Preservative Free) 3 years and older: Fluzone 0.5 ml- IM-(with Preservatives) 65+ years old: 2-49 years old Fluzone High-Dose 0.5 ml - IM (Preservative Free) FLUMIST- intranasal REMEMBER: If patient is less than 9 years of age and this is the first vaccine of Influenza to be received in any flu season, they should receive a second dose in one months time. PROGRESS Observed: 03/23/2018 Status: COMPLETED Source: [place] 10:32 AM [facility] REPOSITORY HNO ID: [id number] Author: Adelina Helms Service: (none) Author Type: Physician Type: Progress Notes Filed: 03/23/2018 10:33 AM Note Text: A blackwell? fetus in utero with symmetric measurements Adequate growth (AGA). Estimated Date of Delivery: 08/14/18 EGA = 19w3d The anatomy appears normal. There are no evident malformations and /or effusions. No genetic markers are noted. The amniotic fluid volume is within normal limits. The sensitivity of ultrasound in the detection of malformations overall is approximately 35%. RECOMMENDATIONS: - Follow up ultrasound as clinically indicated GC/CHLAMYDIA AMP, UR Collected: 02/05/2018 Status: F Source: [place] 11:00 AM [facility] REPOSITORY TYPE CODE TESTS RESULT OUT OF REFERENCE UNITS RANGE LAB UGCAMP GC Negative Amplification, for Neisseria Ur gonorrhoeae by amplification. LAB UCLAMP Negative Chlamydia for Chlamydia Amplif, Ur trachomatis by amplification. Result Comment: For screening asymptomatic women, a vaginal swab specimen (ZS GeneticsIMA vaginal swab 104108) is optimal. Urine specimens have reduced sensitivity for Chlamydia trachomatis or Neisseria gonorrh oeae infection in female patients without symptoms. This test was developed and its performance characteristics determined by [facility]'s [facility] [place] ([facility]). It has not been cleared or approved by the FDA. -[facility] is regulated under CLIA as qualified to perform high-complexity testing. This test is used for clinical purposes. It should not be regarded as investigational or for research. Performed By: #### UGCCT #### [facility] [address], [place] [address] PROGRESS Observed: 01/15/2018 Status: COMPLETED Source: [place] 10:58 AM [facility] REPOSITORY HNO ID: [id number] Author: Brooke Choudhary Service: (none) Author Type: Physician Type: Progress Notes Filed: 01/15/2018 10:58 AM Note Text: lab reviewed, please place result in chart. Brooke Choudhary MD` PROGRESS Observed: 01/12/2018 Status: COMPLETED Source: [place] 1:10 PM [facility] REPOSITORY HNO ID: [id number] Author: Brooke Choudhary Service: (none) Author Type: Physician Type: Progress Notes Filed: 01/12/2018 1:10 PM Note Text: lab reviewed, please place result in chart. Brooke Choudhary MD` TOXICOLOGY SCREEN,UR Collected: 01/11/2018 Status: F Source: [place] 2:00 PM [facility] REPOSITORY TYPE CODE TESTS RESULT OUT OF REFERENCE UNITS RANGE LAB UPCP2 Negative Negative Phencyclidin e, Urine Result Comment: Cutoff threshold at 25 ng/mL. LAB UBENZ2 Negative Benzodiazepines, Ur Negative Result Comment: Cutoff threshold at 200 ng/mL. LAB UCOC2 Negative Cocaine, Negative Urine Result Comment: Cutoff threshold at 300 ng/mL. LAB UAMPH2 Negative Amphetamines, Urine Negative Result Comment: Cutoff threshold at 1000 ng/mL. LAB UTHC2 Negative Cannabinoids, Urine Negative Result Comment: Cutoff threshold at 50 ng/mL. LAB UOPI2 Negative Opiates, Negative Urine Result Comment: Cutoff threshold at 300 ng/mL. LAB UBARB2 Negative Barbiturates, Urine Negative Result Comment: Cutoff threshold at 200 ng/mL. LAB UETOH <11 mg/dL <11 Ethanol, Urine LAB UOXYC Negative Oxycodone, Negative Urine Result Comment: Cutoff threshold at 100 ng/mL. Comment: Immunoassay screen only. Cross reactivity with other substances can occur with immunoassay screening. Detection of any drug(s) in this urine toxicology panel is presumptive only. These tests are for med ical purposes only and should not be used for compliance monitoring, legal, or forensic use. Samples should be within normal physiological conditions (e.g. pH). This assay does not include adulteration/specimen validity testing. In clinical settings, confirmatory testing is at the practitioner's discretion [1]. If clinically indicated, confirmation by high specificity, quantitative methodology, which includes adulteration/spec imen validity testing, may be requested on the same specimen through Client Services ([phone]) if contacted within 48 hours of initial testing. [1]Substance Abuse and Mental Health Services Administration (2012). Clinical Drug Testing in Primary Care Technical Assistance Publication Series 32. Department of Health and Human Services, [place], p.10. These tests were developed and their performance characteristics determined by [facility]'s [facility] [place] ([facility]). They have not been cleared or a pproved by the FDA. [facility] is regulated under CLIA as qualified to perform high complexity testing. These tests are used for clinical purposes. They should not be regarded as investigational or for research. Performed By: #### UTOX2 #### [facility] [address] [id number] Observed: 01/11/2018 Status: F Source: [place] URINE CULTURE 2:00 PM [facility] REPOSITORY Sp. Request/Comment: - Specimen received in preservative Culture Result - 10,000 - <50,000 CFU/ml Normal urogenital tristan Performed By: #### URCUL #### [address] [address] CBC Collected: 01/11/2018 Status: F Source: [place] 11:32 AM [facility] REPOSITORY TYPE CODE TESTS RESULT OUT OF REFERENCE UNITS RANGE LAB WBC 3.70-11.00 k/uL WBC 10.48 LAB RBC 3.90-5.20 m/uL Low RBC 3.74 LAB HGB 11.5-15.5 g/dL Hemoglobin 11.8 LAB HCT 36.0-46.0 % Low Hematocrit 35.8 LAB MCV 80.0-100.0 fL MCV 95.7 LAB MCH 26.0-34.0 pG MCH 31.6 LAB MCHC 30.5-36.0 g/dL MCHC 33.0 LAB RDWCV 11.5-15.0 % RDW-CV 13.2 LAB PLTCT 150-400 k/uL Platelet Count 211 LAB MPV 9.0-12.7 fL MPV 12.5 LAB ABSNUC <0.01 k/uL Absolute nRBC <0.01 Performed By: #### CBC, SYPHGX, RUBIGG, HBSAG, HIV12C #### [id number] [address] SYPHILIS IGG WITH Collected: 01/11/2018 Status: F Source: [place] CONF 11:32 AM [facility] REPOSITORY TYPE CODE TESTS RESULT OUT OF REFERENCE UNITS RANGE LAB SYPHQL Nonreactive Syphilis IgG, Nonreactive Qual Result Comment: In conjunction with this result, the immune status of the patient should be evaluated based on their clinical status, related risk factors, and other diagnostic test results. LAB SYPHLG AI Syphilis IgG <0.2 Result Comment: Antibody index is interpreted as follows: Non reactive SPECIMENS <=0.8 Weak reactive SPECIMENS 0.9 to 5.9 Reactive SPECIMENS >=6.0 Performed By: #### CBC, SYPHGX, RUBIGG, HBSAG, HIV12C #### [address] [phone] RUBELLA IGG ANTIBODY Collected: 01/11/2018 Status: F Source: [place] 11:[address] [place] [address] REPOSITORY TYPE CODE TESTS RESULT OUT OF RANGE REFERENCE UNITS LAB RUBGQL Negative Abnormal Rubella IgG Positive Alert Ab, Qual Result Comment: Sample is considered positive for IgG antibodies to rubella virus. A positive result indicates previous exposure to Rubella virus or vaccination. LAB RUBQNT Index Value Rubella IgG Ab 1.80 Result Comment: Index values are interpreted as follows: Negative specimens <0.90 Equivocol specimens 0.90 to 0.99 Positive specimens >0.99 The magnitude of the measured result is not indicative of the amount of antibody present. Performed By: #### CBC, SYPHGX, RUBIGG, HBSAG, HIV12C #### [phone] HEPATITIS B SURF. AG Collected: 01/11/2018 Status: F Source: [place] 11:[address] [place] [address] REPOSITORY TYPE CODE TESTS RESULT OUT OF REFERENCE UNITS RANGE LAB HBSAG Negative Hepatitis B Negative Surf. Ag Performed By: #### CBC, SYPHGX, RUBIGG, HBSAG, HIV12C #### [address] [phone] HIV 12 COMBO (AG/AB) Collected: 01/11/2018 Status: F Source: [place] 11:[address] [place] [address] REPOSITORY TYPE CODE TESTS RESULT OUT OF REFERENCE UNITS RANGE LAB HVAGAB Non Reactive HIV Non Reactive 12 Ag/Ab Result Comment: (NOTE) HIV Information: [place] Rev. Code 3701.243(E): This information has been disclosed to you from confidential records protected from disclosure by state law. You shall make no further disclosure of this information without the specific, written, and informed release of the individual to whom it pertains, or as otherwise permitted by state law. A general authorization for the release of medical or other information is not sufficient for the purpose of the release of HIV test results or diagnoses. Performed By: #### CBC, SYPHGX, RUBIGG, HBSAG, HIV12C #### [facility] [address] [id number] TYPE AND SCR,PRENATL Collected: 01/11/2018 Status: F Source: [place] 11:32 AM [facility] REPOSITORY TYPE CODE TESTS RESULT OUT OF REFERENCE UNITS RANGE LAB %ABR O ABO/RH(D) POSITIVE LAB % Antibody NEG Screen Performed By: #### TSPN #### [facility] [address], [place] [address] CYSTIC FIBROSIS SCR Collected: 01/11/2018 Status: F Source: [place] 11:32 AM [facility] REPOSITORY TYPE CODE TESTS RESULT OUT OF REFERENCE UNITS RANGE LAB CFNGST CF [id number] (NOTE) John Report Result Comment: Performing Pathologist: Chapis Cadena M.D., Ph.D. RESULT: CFTR (RefSeq [id number]): No variant detected INTERPRETATION: The patient does not carry any of the 139 pathogenic genetic variants in the cystic fibrosis transmembrane regulator (CFTR) gene. A negative test result reduces the possibility that this individual is a carrier for cystic fibrosis (CF). However, this test does not detect all variants in the CFTR gene and it is possible that the patient could have a CFTR variant not included in this test. GUIDANCE: Cystic fibrosis (CF) is a multisystem genetic disease of sodium chloride transport that commonly involves the lungs, pancreas, intestines, liver, sweat glands and male reproductive system. CF is one of the most common inherited conditions among Caucasians and is diagnosed in approximately 1 in 3000 individuals in the [place] The condition is less common but occurs in all other racial and ethnic groups. CF has an autosomal recessive inheritance pattern and heterozygous carriers are unaffected. If both partners in a couple have a pathogenic variant, there is a 25% chance for a child to have CF. Genetic test results should be considered in the context of all relevant clinical information including patient phenotype, other laboratory results and family history. Genetic consultation may be beneficial for this individual and the family. Carrier Frequencies: : 1 in 28 Ashkenazi Denominational: 1 in 29 : 1 in 59 : 1 in 70 : 1 in 84 : 1 in 91 : 1 in 242 METHOD: The Illumina MiSeqDx Cystic Fibrosis 139-Variant Assay is a qualitative in vitro diagnostic system used to simultaneously detect 139 clinically relevant cystic fibrosis disease-causing mutations and variants of the cystic fibrosis transmembrane conductance regulator (CFTR) gene in genomic DNA isolated from human peripheral whole blood. The variants reported by the MiSeqDx Cystic Fibrosis 139-Variant Assay were specifically chosen because they represent the full set of clinically validated variants classified as CF- causing in the CFTR2 database at [facility], a product of the CFTR2 (Clinical and Functional Translation of CFTR) initiative. Briefly, multiplex short oligonucleotide primers are designed to hybridize to the genomic DNA regions of interests. Followed by primer extension and ligation, the ligation products are multiplex PCR amplified using primers that add index sequences for sample multiplexing, as well as common adapters required for cluster generation and sequencing on the MiSeqDx instrument. The MiSeq Striper Machine processes base calls generated during primary analysis. Secondary analysis includes demultiplexing, FASTQ file generation, alignment, variant calling, and generation of variant-calling files (VCFs) containing information about CFTR variants found at specific positions in the reference genome. LIMITATIONS: The results should be used and interpreted in the context of a full clinical evaluation. The assay does not include all variants identified in the CFTR gene. Therefore, the failure to identify a variant does not guarantee that other CFTR variants are not present in the samples being analyzed. Variants identified by this assay vary in frequency among different populations. As with any hybridization-based assay, underlying variants in oligonucleotide-binding regions can affect the alleles being probed and, consequently, the calls made. The orientation of the PolyTG/PolyT variant, whether in cis/trans to the R117H variant, cannot be ascertained. PolyTG/PolyT are homopolymeric regions known to be difficult to interpret with sequence-based assays due to polymerase slippage. A 0.9% (4/448) miscall rate is reported for PolyTG/PolyT results. REFERENCES: [place] [employer] Obstetricians and Gynecologists Committee on Genetics. ACOG committee opinion No. 486: Update on Carrier Screening for Cystic Fibrosis. Obstet Gynecol. 2011;117(4):5212-9095. Ignacio RAGSDALE, Candice Salazar M, Dee MOLINA, Aaron SOMMER. Cystic Fibrosis: A worldwide analysis of CFTR mutations-correlation with incidence data and application to screening. 2002. Hum Mutat 19:575-606. Blaise BORREGO. Cystic fibrosis genetics: from molecular understanding to clinical application. Emilia Rev Karina. 2015;16(1):45-56. Aaron PM, Skylar BJ, Angela TB, Ashwin FJ, Michele C, Blaise BORREGO, Arnold UT, Bryon VA, Hilda J, Chris RB, MJ, Cason, III, PW. Guidelines for diagnosis of cystic fibrosis in newborns through older adults: Cystic Fibrosis Foundation consensus report. JPediatr. 2008;153:S4-S14. Juan DEVLIN, Blaise BORREGO, Minoo HAZEL, Neida LOPEZ, Dennis DOBBINS, Betsy CONNOR. Laboratory standards and guidelines for population-based cystic fibrosis carrier screening. Karina Med 2001;3:149-54. Marcus SM, Emilia JF, Tamara DL, David E, Blaise BORREGO. CFTR-related disorders. Paulino RA, Heriberto TC, Moose CR, Turner Davidson, editors. Rogerws. [place] ([place]): [facility]; 2008. Available at www.ncbi.nlm.nih.gov/books/KJL7927. [Online] Updated Sep 18, 2007. Online Mendelian Inheritance in Man, OMIM. [facility], Calvert, MD. Cystic fibrosis transmembrane conductance regulator; CFTR. SHAHNAZ Number: *[id number]: 04/29/2014: World Wide Web URL: http://omim.org/ The Clinical and Functional Translation of CFTR (CFTR2). Available at http://www.cftr2.org/ [Online] MS Dennis, Blaise BORREGO, Betsy CONNOR, Jeet VEE, Minoo Davidson, David M, Arnol GE, Raza BW, Sean VM, Chanda EM, Tatiana CM, Neida LOPEZ, Vikas FORD, Juan DEVLIN. Cystic fibrosis population carrier screenin revision of [place] [employer] Genetics mutation panel. Karina Med. 2004;6:387-91. Performed By: #### CFNGS #### [place] [address] PROGRESS Observed: 01/11/2018 Status: COMPLETED Source: [place] 10:26 AM [facility] REPOSITORY HNO ID: [id number] Author: Brooke Choudhary Service: (none) Author Type: Physician Type: Progress Notes Filed: 01/11/2018 11:10 AM Note Text: INITIAL OB ASSESSMENT OB Provider: Brooke Choudhary MD HPI: Ivette Sadler is a 27 year old female here to establish Obstetrical Care. Patient's last menstrual period was 11/07/2017. from OB Dating Form. Cycle length: 28 days Complaints: nausea, rare vomiting was planned. Obstetric History T1 L1 SAB0 TAB0 Ectopic0 Multiple0 Live Births1 Prior : never History of 4th degree laceration: No Patient's Risk Screening for delivery: History of abnormal pap: No Prior treatment for cervical dysplasia: none. 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 Patient BMI over 30? No Marital Status: Partner: Name: Mckinley Age: 28 Occupation: [employer] Gender: male History of STDs: None PAST MEDICAL HISTORY Diagnosis Date - DEPRESSION with hx of suicide attempts - FRACTURE LEFT HAND - Herpes simplex of female genitalia 03/22/2013 - History of umbilical hernia - PID (acute pelvic inflammatory disease) - Scoliosis PAST SURGICAL HISTORY Procedure Laterality Date - EXTRACTION ERUPTED TOOTH/EXR 2014 Current Outpatient Prescriptions on File Prior to Visit: Qfxxpkrc-Ym-Ofy-Fe-FA ( VITAMIN) tab Take 1 tablet by mouth. promethazine (PHENERGAN) 25 mg tablet Take 1 tablet by mouth every 6 hours as needed. TAKE ONE TABLET EVERY 6 HOURS PRN No current facility-administered medications on file prior to visit. Review of Systems: GENERAL: Negative for: Fever or Chills HEENT: Negative for: Headache, Impaired Vision, Ringing in Ears, Nosebleeds NECK: Negative for: Swelling, Pain, Stiffness RESPIRATORY: Negative for: Cough, Shortness of breath, Wheezing GASTROINTESTINAL: Negative for: Heartburn, Constipation, Diarrhea, Blood in stool, Vomiting MUSCULOSKELETAL: Negative for: Muscle or joint pain, stiffness, Joint swelling NEUROLOGIC/PSYCHIATRIC: Negative for: Weakness, Paralysis, Numbness, Tingling, Tremor, Anxiety, Depression, Memory loss SKIN: Negative for: Rash, Itching GENITOURINARY: Negative for: vaginal itching, vaginal discharge, hematuria or dysuria PHYSICAL EXAM: LMP 11/07/2017 GENERAL: pleasant female DERMATOLOGY: Normal, without lesions, non-icteric and non-hirsute NECK: Supple, full range of motion, no adenopathy and thyroid normal CHEST: Normal inspiratory effort BREAST: soft, non-tender, symmetric, no dominant mass, normal nipple-areolar complex, no lymphadenopathy and no nipple discharge ABDOMEN: soft, non-tender and no masses NEURO: alert and oriented x3,exam grossly non-focal PELVIS: External genitalia normal without lesions. Perineal body intact. No vaginal or cervical lesions. Cervix closed. Uterus 9 week size. No adnexal masses or tenderness. Clinical Pelvimetry: Pelvimetry clinically assessed as adequate Limited OB ultrasound exam: single intrauterine , positive cardiac activity and crown-rump length c/w 9w 3 d ASSESSMENT: 27 year old at 9w2d wks gestational age PLAN: 1) Patient oriented to practice. Discussed nutrition, folic acid supplementation, dietary guidelines, exercise, smoking, alcohol, caffeine, and drug use. Discussed routine OB labs including STD/HIV. Discussed aneuploidy screening options including serum screening and nuchal translucency. Patient declines all aneuploidy screening. CF carrier screening discussed and accepted. Follow up in 4 weeks or sooner prn. Brooke Choudhary MD SBIRT Ivette Sadler was given the 's screening tool. Ivette answered as follows: OB Opioid Screening - Last Recorded (since 04/16/2017) Did any of your parents have a problem with alcohol or other drug use? No (mother with prescription drugs) Does your partner have a problem with alcohol or other drug use? No In the past, have you had difficulties in your life because of alcohol or other drugs, including prescription medications? No In the past month have you drunk any alcohol or used other drugs? (!) Yes (fdirst week of November had 3 glasses of wine before she was aware she was ) Are you taking medication for pain during the either prescribed or not? No Based on the screen and further questions, she is considered at Low risk due to:Low level of use stopped prior to or immediately upon known . Positive reinforcement of current behavior. Plan to rescreen early third trimester. Brooke Choudhary MD PROGRESS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
== END 2018-08-21 16:00 | disposition home or self-care (01) | DRG 768 ==
PROVIDERS: Admitting Provider Obstetrics & Gynecology; Referring Provider Obstetrics & Gynecology; Visit Provider Obstetrics & Gynecology
DX: O62.3 Precipitate labor (principal); Z37.0 Single live birth; O72.1 Other immediate postpartum hemorrhage; O70.1 Second degree perineal laceration during delivery; O69.81X0 Labor and delivery complicated by cord around neck, without compression, not applicable or unspecified; Z3A.40 40 weeks gestation of pregnancy
CPT/HCPCS: 59050; 85027; 86850; 86900; 99218; J7120; A4216; G0378

== ENCOUNTER → 2019-04-29 16:59 | Outpatient (CLI) | payer OTHER, SELFPAY ==
[2019-04-29 17:46] LABS: hCG Titer Quant., Serum 234 mIU/mL (1-3)
== END ==
PROVIDERS: Referring Provider Obstetrics & Gynecology; Visit Provider Obstetrics & Gynecology
DX: Z34.90 Encounter for supervision of normal pregnancy, unspecified, unspecified trimester (principal)
CPT/HCPCS: 36415; 84702

== ENCOUNTER → 2019-05-01 09:44 | Outpatient (CLI) | payer OTHER, SELFPAY ==
[2019-05-01 12:01] LABS: hCG Titer Quant., Serum 404 mIU/mL (1-3)
== END ==
PROVIDERS: Referring Provider Obstetrics & Gynecology; Visit Provider Obstetrics & Gynecology
DX: Z34.90 Encounter for supervision of normal pregnancy, unspecified, unspecified trimester (principal)
CPT/HCPCS: 36415; 84702

== ENCOUNTER → 2019-05-30 14:39 | Outpatient (CLI) | payer OTHER, SELFPAY ==
[2019-05-30 10:12] VITALS: BMI 29.8
[2019-05-30 16:46] LABS: Chlamydia Trachomatis by PCR Negative (Negative); Neisserai gonorrhoeae by PCR Negative (Negative); Probe Check PASS; Sample Adequacy Control PASS; Specimen Processing Control PASS
== END ==
PROVIDERS: Visit Provider Obstetrics & Gynecology
DX: Z34.80 Encounter for supervision of other normal pregnancy, unspecified trimester (principal)
CPT/HCPCS: 87086; 87491; 87591

== ENCOUNTER → 2019-06-26 11:45 | Outpatient (CLI) | payer OTHER, SELFPAY ==
[2019-06-26 11:40] VITALS: BMI 29.8
[2019-06-26 12:03] LABS: Absolute Lymphocyte Count 2.55 X10^3/uL (0.83-4.51); Absolute Neutrophil Count 9.5 X10^3/uL (2.0-7.7); Basophil# 0.02 X10^3/uL; Basophil% 0.2 % (0-1); Eosinophil# 0.03 X10^3/uL; Eosinophils% 0.2 % (0-5); Hematocrit 38.9 % (37-47); Hemoglobin 12.9 g/dL (12.0-15.0); Lymphocyte # 2.55 X10^3/ul (4.0); Lymphocyte % 19.7 % (19-41); Mean Corp Hgb Conc 33.2 g/dL (32-36); Mean Corpuscular Hgb 30.5 pg (27.0-32.0); Mean Platelet Vol. 11.1 fl (6.2-12.0); Monocyte# 0.86 X10^3/uL; Monocyte% 6.6 % (0-10); NRBC Flagged by Analyzer 0 % (0-5); Neutrophil # 9.47 X10^3/uL (2.7-7.7); Platelet Count 259 K/mm3 (150-450); RBC Distribution Width CV 13.4 % (11.6-14.6); RBC Distribution Width SD 45.1 fl (35.1-43.9); Red Blood Count 4.23 M/mm3 (4.2-5.4)
[2019-06-26 13:24] LABS: HIV - WCH Non-Reactive (Nonreactive); Hepatitis B Surface Antigen Non-Reactive (Nonreactive); Rubella IgG 33.3 IU/mL
[2019-06-27 01:54] LABS: Rapid Plasmin Reagin (RPR) NONREACTIVE (NONREACTIVE)
[2019-06-29 13:16] LABS: HSV 2 IgG < 0.91 index (0.00-0.90); V-Zoster IgG (Immunity) 335 index (Immune >165)
[2019-10-03 14:37] LABS: Absolute Lymphocyte Count 2.25 X10^3/uL (0.83-4.51); Absolute Neutrophil Count 9.4 X10^3/uL (2.0-7.7); Basophil# 0.02 X10^3/uL; Basophil% 0.2 % (0-1); Eosinophil# 0.03 X10^3/uL; Eosinophils% 0.2 % (0-5); Hematocrit 33.7 % (37-47); Hemoglobin 11.3 g/dL (12.0-15.0); Lymphocyte # 2.25 X10^3/ul (4.0); Lymphocyte % 18.2 % (19-41); Mean Corp Hgb Conc 33.5 g/dL (32-36); Mean Corpuscular Hgb 31.9 pg (27.0-32.0); Mean Corpuscular Volume 95.2 fL (81-99); Mean Platelet Vol. 11.4 fl (6.2-12.0); Monocyte# 0.63 X10^3/uL; Monocyte% 5.1 % (0-10); NRBC Flagged by Analyzer 0 % (0-5); Neutrophil # 9.38 X10^3/uL (2.7-7.7); Neutrophil % 75.8 % (47-70); Platelet Count 233 K/mm3 (150-450); RBC Distribution Width CV 13.2 % (11.6-14.6); RBC Distribution Width SD 46.2 fl (35.1-43.9); Red Blood Count 3.54 M/mm3 (4.2-5.4); White Blood Count 12.4 K/mm3 (4.4-11.0)
[2019-10-03 14:46] LABS: Glucose Challenge Gest 1H 50g 108 mg/dL (70-140)
== END ==
PROVIDERS: Obstetrics & Gynecology; Referring Provider Nurse Practitioner Women's Health; Visit Provider Nurse Practitioner Women's Health
DX: Z34.80 Encounter for supervision of other normal pregnancy, unspecified trimester (principal)
CPT/HCPCS: 36415; 82950; 85025; 86592; 86695; 86696; 86703; 86762; 86787; 86850; 86900; 86901; 87340

== ENCOUNTER → 2019-10-03 14:13 | Outpatient (CLI) | payer OTHER, SELFPAY ==
[2019-09-20 11:39] VITALS: BMI 29.8
== END ==
PROVIDERS: Referring Provider Obstetrics & Gynecology; Visit Provider Obstetrics & Gynecology
DX: Z00.00 Encounter for general adult medical examination without abnormal findings (principal)

== ENCOUNTER → 2019-12-06 16:05 | Outpatient (CLI) | payer OTHER, SELFPAY ==
[2019-12-06 10:55] VITALS: BMI 29.8
== END ==
PROVIDERS: Referring Provider Obstetrics & Gynecology; Visit Provider Obstetrics & Gynecology
DX: Z34.93 Encounter for supervision of normal pregnancy, unspecified, third trimester (principal); Z3A.36 36 weeks gestation of pregnancy
CPT/HCPCS: 87081

== ENCOUNTER → 2019-12-27 14:33 | Outpatient (CLI) | payer OTHER, SELFPAY ==
[2019-12-26 10:27] VITALS: BMI 29.8
== END ==
PROVIDERS: Visit Provider Obstetrics & Gynecology
DX: Z11.59 Encounter for screening for other viral diseases (principal)
CPT/HCPCS: 87635; 94799; G2023; U0003

== ENCOUNTER 2019-12-29 16:10 | Inpatient (IN) | payer OTHER, SELFPAY ==
[2019-12-26 10:27] VITALS: BMI 29.8
[2019-12-29 16:38] VITALS: BMI 30.6
[2019-12-29] MEDS: Lactated Ringers 1,000 ML 200 ML IV (16:55)
[2019-12-29] MEDS: Lactated Ringers 500 ML 999 ML IV ×2 (17:10→18:12)
[2019-12-29 17:21] LABS: Absolute Lymphocyte Count 2.84 X10^3/uL (0.83-4.51); Absolute Neutrophil Count 12.9 X10^3/uL (2.0-7.7); Basophil# 0.04 X10^3/uL; Basophil% 0.2 % (0-1); Eosinophil# 0.02 X10^3/uL; Eosinophils% 0.1 % (0-5); Lymphocyte # 2.84 X10^3/ul (4.0); Lymphocyte % 16.6 % (19-41); Mean Corp Hgb Conc 32.4 g/dL (32-36); Mean Corpuscular Hgb 29.2 pg (27.0-32.0); Mean Corpuscular Volume 90.2 fL (81-99); Mean Platelet Vol. 11.9 fl (6.2-12.0); Monocyte# 1.13 X10^3/uL; Monocyte% 6.6 % (0-10); NRBC Flagged by Analyzer 0 % (0-5); Neutrophil # 12.94 X10^3/uL (2.7-7.7); Neutrophil % 75.9 % (47-70); Platelet Count 318 K/mm3 (150-450); RBC Distribution Width CV 13.3 % (11.6-14.6); RBC Distribution Width SD 43.7 fl (35.1-43.9); Red Blood Count 3.77 M/mm3 (4.2-5.4); White Blood Count 17.1 K/mm3 (4.4-11.0)
[2019-12-29] MEDS: fentaNYL-bupivacaine (epidural) 100 ML BAG EPIDURAL (18:13)
--- NOTE | 2019-12-29 18:50 | HP.PCM_ITS ---
- Problem List (1) Active labor at term Status: Acute (2) Abnormal ultrasound Status: Acute Comment: Short long bones-appropriate interval growth, cont q4 wks. weekly nsts. deliver at 41 weeks NIPT and infectious screening low risk; COVID testing ordered 12/26/19 (3) Anemia Status: Acute Comment: taking iron in (4) Anxiety Status: Acute Comment: zoloft, encouraged counseling options. (5) Herpes genitalis Status: Acute Qualifiers: Comment: plan acyclovir after 36 weeks (6) History of hemorrhage Status: Acute Comment: 07/2018 (7) History of precipitous labor and deliveries, antepartum Status: Acute Comment: 07/2018 (8) Influenza vaccination given Status: Acute Comment: 05/30/2019 (9) Status: Acute Qualifiers: Comment: declines genetic, carrier and NTD. anatomy reviewed. 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 Required: No Is patient in pain?: No Allergies No Known Allergies Allergy (Verified 12/26/19 10:23) Medications Vits [Prenatabs FA ] 1 tab PO DAILY 07/17/13 [History Confirmed 12/26/19] calcium carbonate 200 mg calcium (500 mg) chewable tablet 200 mg PO BID 11/22/19 [History Confirmed 12/26/19] acyclovir 400 mg tablet 400 mg PO BID #60 tab 11/26/19 [Rx Confirmed 12/26/19] Last Menstral Period: 03/23/19 Zika: Zika virus screening: Negative : No PFSH PFSH Medical History Umbilical hernia (Acute) Fracture of left hand (Acute) History of depression (Acute) PID (acute pelvic inflammatory disease) (Acute) hemorrhage (Acute) Scoliosis (Acute) Surgical History H/O wisdom tooth extraction (Acute) Family History Mother Drug abuse bipolar Father Diabetes Sister Alcoholic Brother Tourette's Grandmother Diabetes CVA (cerebral vascular accident) Grandfather Lung cancer Social History (Updated 12/26/19 @ 11:[address] 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 Date Name GA/Weeks Outcome Route Bth Weight Gen Labor Lgth Anesthesia Del [facility] Provider FOB 07/17/13 Francis 40 live - full term 8lbs 14.5oz Male 12hours epidural [facility] 08/20/18 Lisa 40 live - full term 9lbs 8oz Female 3 0 minutes other [facility] Shani Hammond Delivery Date: 07/17/13 On 05/30/19 @ 09:31 Lillie Ramos No complications Delivery Date: 08/20/18 On 05/30/19 @ 10:10 Lillie Ramos prec labor, post hemorrhage- no blood given HPI 39 WK OB: Details: IVETTE SADLER is a 29 year old 3 P2 at 40 weeks 1 day presents in active labor 5 cm dilated. OB Visit GREER Calculator Estimated Delivery Date Method Current WG Current Estimate 12/28/19 LMP (Certain) 39w 5d Expected Delivery Route/Plan Labor Preferences- labor support person: ileana pain management options preferred: epidural if she has time cut cord/dad catch: yes : [] PP control planned: [] discussed possible routes of delivery and associated risks: [] special requests: [] Specific Issue/Plans flu vaccine: given tdap vaccine: given rhogam: na LARC form signed: declined movement and labor precautions reviewed. Problem list reviewed and updated with the most current plan of care details and appropriate orders placed. Relevant counseling for the gestational age provided. Continue routine care and follow up unless otherwise noted in visit notes/problem list details Initial Weight: 173 lb Date EGA Weight BP Urine Prot Glucose FHR FuHt Pres Dilation Effaced St Visit Note 06/26/19 13w 4d 171 lb 6 oz (-1 lb 10 oz) 117/73 Negative Negative 164 Doing well. No VB, LOF. 07/26/19 17w 6d 173 lb (+0 oz) 119/75 Negative Negative 150 SM- no vb cramping 08/21/19 21w 4d 178 lb 6 oz (+5 lb 6 oz) 122/68 Negative Negative 161 MH No VB, LOF. was told at [facility] baby has echogenic bowel and short long bones. She then had genetic screening done at that visit and has repeat US in 4 weeks. Current US report does not indicate this and will call [facility] to clarify. Patient states otherwise feels good and baby with good FM MH No VB, LOF. was told at [facility] baby has echogenic bowel and short long bones. She then had genetic screening done at that visit and has repeat US in 4 weeks. Current US report does not indicate this and will call [facility] to clarify. Patient states otherwise feels good and baby with good FM. Patient discussed finding with Dr. Banuelos. New [facility] US report coming. 09/20/19 25w 6d 177 lb (+4 lb) 106/70 Negative Negative 150 SM- no vb lof good fm no reg ctx discussed findings, check us every 4 weeks 10/07/19 28w 2d 182 lb (+9 lb) 122/66 Negative Negative 150 28 SM- no vb lof good fm no regular ctx 11/22/19 34w 6d 186 lb (+13 lb) 98/60 Negative Negative 140 35 Cephalic SM- no vb lof good fm no regular ctx. doing well 12/06/19 36w 6d 183 lb (+10 lb) 104/56 Negative Negative 130 36 Cephalic 1 SM- no vb lof good fm n oregular ctx 12/12/19 37w 5d 184 lb 2 oz (+11 lb 2 oz) 106/68 Negative Negative 130 37 Cephalic 1 SM- no vb SM- no vb lof good fm no regular ctx 12/20/19 38w 6d 187 lb (+14 lb) 118/72 Negative Negative 130 37 Cephalic 1.5 SM- no vb lof good f, no regular ctx 12/26/19 39w 5d 184 lb 8 oz (+11 lb 8 oz) 116/74 Negative Negative 130 38 Cephalic 3 60 -2 SM- no vb lof good fm no regular ctx Notes Visit Date: 12/26/19 ??No visit notes to display Visit Date: 12/20/19 ??No visit notes to display Visit Date: 12/12/19 ??No visit notes to display Visit Date: 12/06/19 ??No visit notes to display Visit Date: 11/22/19 ??No visit notes to display Visit Date: 10/07/19 ??No visit notes to display Visit Date: 09/20/19 ??No visit notes to display Visit Date: 08/21/19 ??No visit notes to display Visit Date: 07/26/19 ??No visit notes to display Visit Date: 06/26/19 ??Doing well. No VB, LOF. ??Mallika Wall NP-C on 06/26/19 ACOG First Trimester First Trimester: Desire for , Alcohol, Tobacco Cessation, Illicit/Recreational Drug/Substance Use, Intimate Partner Violence, Barriers to care, Unstable Housing, Communication Barriers, Environmental/Work Hazards, Anticipated Course of Care, Toxoplasmosis Precations, Use of Any me dications, Sexual activity, Exercise, Dental Care, Sauna/Hot tub use, Seat Belt use, Childbirth classes/Hospital facilities, , Travel, Indications for US and Screening for Aneuploidy Second Trimester Second Trimester: Signs and Symptoms of Labor, Selecting a care provider, Reproductive Life Planning, Care Planning, Tobacco Cessation, Depression/Anxiety and Intimate Partner Violence Third Trimester Third Trimester: Pain Management Plans, Labor support person(s), Immediate Larc, Movement Monitoring and Infant Feeding Yes ; discussed Trial of Labor after Counseling or discussed Circumcision preference Diagnostics Diagnostics Diagnostics Blood Type O POSITIVE 06/26/19 Antibody Screen NEGATIVE 06/26/19 Glucose 1 Hr 50 gm 108 mg/dL (70-140) 10/03/19 HIV 1&2 Antibody Non-Reactive (Nonreactive) 06/26/19 Rubella IgG Antibody 33.3 IU/mL 06/26/19 VZV IgG Antibody 335 index (Immune >165) 06/26/19 Hgb 11.3 g/dL (12.0-15.0) L 10/03/19 Hct 33.7 % (37-47) L 10/03/19 RPR NONREACTIVE (NONREACTIVE) 06/26/19 Details: HIV: Urine Culture: Sequential Screen: NIPT Screen: ROS Const Reports system reviewed and no additional complaints, except as docu Card Reports system reviewed and no additional complaints, except as docu Resp Reports system reviewed and no additional complaints, except as docu GI Reports system reviewed and no additional complaints, except as docu, Reports nausea Reports system reviewed and no additional complaints, except as docu Musc Reports system reviewed and no additional complaints, except as docu Exam Const General: cooperative, healthy appearing, comfortable, anxious HENWA Head: normal to inspection Nose: external nose normal Face and sinus: normal facial exam Neck Neck: normal visual inspection, full ROM, no lymphadenopathy Thyroid: thyroid normal Chest Chest palpation & inspection: normal inspection of the chest Resp Effort & Inspection: normal respiratory effort GI Inspection: normal to inspection Palpation: soft, other (gravid uterus) Other: vertex and appropriate size for gestational age Other: Cervical Exam: Extrem General: pedal edema Office Procedures OB NST Non-Stress Test Indications for Monitoring: Yes other (short long bones) Heart Rate Baseline: 130 Heart Rate Variability: moderate Movement: Present Heart Rate Accelerations: Present Decelerations: Absent Contractions: Absent Impression: Yes Reactive Non-Stress Test Category 1 Results POC Urinalysis 2 Dip (Clinic) Office Urine Glucose Negative Last Edit by Arely Masters on 12/26/19 10:36 Office Urine Protein Negative Last Edit by Arely Masters on 12/26/19 10:36 Assessment & Plan Problems 1. Abnormal ultrasound O28.3 Short long bones-appropriate interval growth, cont q4 wks. weekly nsts. deliver at 41 weeks NIPT and infectious screening low risk; COVID testing ordered 12/26/19 2. Anxiety F41.9 zoloft, encouraged counseling options. 3. Influenza vaccination given Z23 05/30/2019 4. Umbilical hernia K42.9 5. History of precipitous labor and deliveries, antepartum O09.219 07/2018 6. Short interval between pregnancies affecting , antepartum O09.899 7. 39 weeks gestation of Z3A.39 declines genetic, carrier and NTD. anatomy reviewed. 8. History of hemorrhage Z86.2 07/2018 9. Supervision of other normal Z34.80 PRR GREER 12/28/2019 gender surprise PC Lisa Blanco Spouse Ileana 10. Herpes simplex vulvovaginitis A60.04 plan acyclovir after 36 weeks 11. Anemia D64.9 taking iron in 29-year-old at 40 weeks 1 day presents in active labor 5 cm dilated Admit and plan epidural GBS negative Orders Orders: POC Urinalysis 2 Dip (Clinic) Today OB NST Today O28.3 Coding Level of Care Code OB Routine Diagnoses Abnormal ultrasound O28.3 Anxiety F41.9 Influenza vaccination given Z23 Umbilical hernia K42.9 History of precipitous labor and deliveries, antepartum O09.219 Short interval between pregnancies affecting , antepartum O09.899 39 weeks gestation of Z3A.39 ??Weeks of gestation: 39 weeks History of hemorrhage Z86.2 Supervision of other normal Z34.80 Herpes simplex vulvovaginitis A60.04 ??Herpes simplex infection site: vulvovaginitis Anemia D64.9 Additional Codes Non-Stress Test (45632)
--- NOTE | 2019-12-29 18:51 | OP.PCM_ITS ---
Problem List (1) Active labor at term Status: Acute (2) Abnormal ultrasound Status: Acute Comment: Short long bones-appropriate interval growth, cont q4 wks. weekly nsts. deliver at 41 weeks NIPT and infectious screening low risk; COVID testing ordered 12/26/19 (3) Anemia Status: Acute Comment: taking iron in (4) Anxiety Status: Acute Comment: zoloft, encouraged counseling options. (5) Herpes genitalis Status: Acute Qualifiers: Comment: plan acyclovir after 36 weeks (6) History of hemorrhage Status: Acute Comment: 07/2018 (7) History of precipitous labor and deliveries, antepartum Status: Acute Comment: 07/2018 (8) Influenza vaccination given Status: Acute Comment: 05/30/2019 (9) Status: Acute Qualifiers: Comment: declines genetic, carrier and NTD. anatomy reviewed. (10) Short interval between pregnancies affecting , antepartum Status: Acute (11) Supervision of other normal Status: Acute Comment: PRR GREER 12/28/2019 gender surprise Lisa Collier Spouse Mckinley (12) Umbilical hernia Status: Acute Vaginal Delivery Maternal Presentation: Active Labor 29-year-old G3, P2 at 40 weeks 1 day presents in active labor 5 cm dilated Amniotic Membrane Rupture Type: Artificial Amniotic Fluid Description: Clear Final GREER: 12/28/19 Gestational age: 40 Weeks and 1 Days Date of Procedure: 12/29/19 Pre-Operative Diagnosis: ial Post-Operative Diagnosis: same Surgery/ Procedure Performed: Spontaneous Vaginal Delivery Type of Anesthesia: Epidural Description of Procedure: Patient began pushing and delivered the head in the [ALOK] presentation. The head was delivered atraumatically [and a loose nuchal cord ?1 was identified and easily reduced over the 's head]. The anterior and posterior shoulders delivered without complication followed by the rest of the infant and the was placed on the maternal abdomen. Delayed cord clamping was employed for approximately 60 seconds. Cord was clamped and cut and gentle traction was applied to the cord and the placenta delivered spontaneously immediately following it was noted to be intact with three-vessel cord. The perineum and vagina were inspected and [noted to have no laceration]. EBL was [100 cc]. Patient and infant tolerated delivery well. Placental Delivery Description: Spontaneous Placenta Disposition: [facility] Cord Vessel Description: 3 Vessels Episiotomy Description: None Medications given after delivery: IV Pitocin Complications: None Multi Select Codes - Urinary/Genital Urinary/Genital CPT Codes: 87857 Vaginal Delivery [facility]
[2019-12-29] MEDS: Oxytocin 30 units/NS 500 ml 30 UNITS/500 ML IV.SOLN 334 UNITS IV (19:21)
[2019-12-29] MEDS: Methylergonovine 0.2 MG/ML Ampul IM (20:36)
[2019-12-29] MEDS: Naproxen 250 MG Tablet 500 MG PO (21:28)
--- NOTE | 2019-12-29 21:28 | DCINST_ITS ---
Discharge Diet: No Restrictions Discharge Activity: Return to Normal Activity, May not drive while taking narcotic pain medications., May Shower May resume sexual activity in: 4-6 weeks Call your doctor if your incision/area has: Continuous Slow Oozing, Sudden Increased Bleeding, Increased Pain/ Swelling, Increased Redness, Foul Smelling Discharge Additional Instructions: If you experience any of the following, contact your healthcare provider. * Bleeding that soaks a pad every hour for 2 hours * Fever 100.4 or higher * Unrelieved incision or abdominal pain * Swelling, redness, discharge or bleeding from your incision or episiotomy site * Your incision begins to separate * Problems urinating (including inability to urinate or burning while urinating). * Visual changes * Severe headache * Flu-like symptoms * Pain or redness in one of both of your breasts * Pain, warmth, tenderness or swelling in your legs, especially the calf area * Frequent nausea and vomiting * Symptoms of depression or anxiety If you experience any of the following, call 911 or go to the nearest Emergency Room. * Chest pain * Problems breathing * Seizure activity * Partial or complete paralysis of a body part, slurred speech, weakness or drooping of the face, or a sudden inability to walk or hold your balance Allergies/Adverse Reactions: Allergies No Known Allergies Allergy (Verified 12/26/19 10:23) Medications to take at Discharge Vits [Prenatabs FA ] 1 tab PO DAILY 07/17/13 calcium carbonate 200 mg calcium (500 mg) chewable tablet 200 mg PO BID 11/22/19 acyclovir 400 mg tablet 400 mg PO BID #60 tab 11/26/19 Sertraline HCl [Zoloft] 50 mg PO DAILY 12/29/19 Please Follow Up With: Lila Banuelos MD - [phone] When: Call to make an appointment with your doctor in 6 weeks. If you had elevated Blood pressure or 4th degree laceration you will need to be seen in 2 weeks. Primary Care Physician: Care Physician,No Primary [Primary Care Provider] - Test Results: Test results from this visit will be discussed in further detail at your follow- up appointment, if applicable.
[2019-12-30] VITALS (7 sets, daily range): BP systolic 99–114; BP diastolic 55–73; PULSE 58–73; RESP 16–18; TEMP 36.6–37.2; O2SAT 96–98
[2019-12-30] MEDS: Acetaminophen 500 MG Tablet 1000 MG PO ×2 (00:25→21:48)
[2019-12-30] MEDS: Senna/Docusate Sodium 1 Tablet PO (07:57)
[2019-12-30] MEDS: Naproxen 250 MG Tablet 500 MG PO ×2 (07:58→15:18)
--- NOTE | 2019-12-30 09:16 | PN.OBGYN_ITS ---
Patient Problems: Active and Suspected Problems (Last Reviewed 12/26/19 @ 10:22 by Arely Masters) Active labor at term (Acute) Subjective: Doing well, no complaints.Pain controlled. Denies CP, SOB, N,V. Ambulating well, tolerating po. Lochia moderate, going well. - Physical Exam Vitals/I&O's: Vital Signs Temp Pulse Resp BP Pulse Ox 98.1 F 72 18 99/58 L 96 12/30/19 07:45 12/30/19 07:45 12/30/19 07:45 12/30/19 07:45 12/30/19 07:45 Oxygen Delivery Method Room Air Weight: 184 lb Body Mass Index (BMI) 30.6 Intake and Output for Last 24 Hours 12/28/19 12/29/19 12/30/19 23:59 23:59 23:59 Intake Total 1736.67 / 1736.67 Output Total 75 / 75 Balance 1661.67 / 1661.67 General: Alert, Oriented x3 Abdomen: Soft, Non Tender, - - FF below U Laboratory Results 12/29/19 16:55: WBC 17.1 H, RBC 3.77 L, Hgb 11.0 L, Hct 34.0 L, MCV 90.2, MCH 29.2, MCHC 32.4, RDW Std Deviation 43.7, RDW Coeff of John 13.3, Plt Count 318, MPV 11.9, Immature Gran % (Auto) 0.600, Neut % (Auto) 75.9 H, Lymph % (Auto) 16.6 L, [place] % (Auto) 6.6, Eos % (Auto) 0.1, Baso % (Auto) 0.2, Absolute Neuts (auto) 12.9 H, Absolute Lymphs (auto) 2.84, Nucleated RBC % 0 12/29/19 16:55: Blood Type O POSITIVE, Antibody Screen NEGATIVE Current Medications Acetaminophen (Tylenol) 1,000 mg PO Q8H PRN PRN PRN Reason: Pain Score 1-3/10 Last Admin: 12/30/19 00:25 Dose: 1,000 mg Documented by: Bisacodyl (Dulcolax) 10 mg RECTAL UD PRN PRN Reason: If no BM Dibucaine (Dibucaine) 1 applic TOPICAL TID PRN PRN; Protocol PRN Reason: Discomfort Hydrocortisone (Hytone) 1 applic TOPICAL TID PRN PRN; Protocol PRN Reason: Discomfort Methylergonovine Maleate (Methergine) 0.2 mg IM X1 PRN PRN Reason: Excess bleeding/uterine atony Last Admin: 12/29/19 20:36 Dose: 0.2 mg Documented by: Naproxen (Naprosyn) 500 mg PO Q8H PRN PRN PRN Reason: Pain Score 1-3/10 Last Admin: 12/30/19 07:58 Dose: 500 mg Documented by: Ondansetron HCl (Zofran) 4 mg IV Q4H PRN PRN PRN Reason: Nausea Oxycodone HCl (Oxyir) 5 - 10 mg PO Q4H PRN PRN PRN Reason: Pain Score 4-10/10 Senna/Docusate Sodium (Senokot-S, Nuvia-Colace) 1 - 2 tablet PO DAILY PRN PRN PRN Reason: Constipation Last Admin: 12/30/19 07:57 Dose: 2 tablet Documented by: Simethicone (Mylicon) 80 mg PO PCHS PRN PRN Reason: Indigestion/Stomach pain Sodium Chloride () 5 - 15 ml IV UD PRN PRN Reason: SALINE FLUSH Medical Necessity - Tobacco Use Smoking Status: Former smoker Assessment/Plan All Active Problems (Last Reviewed 12/26/19 @ 10:22 by Arely Masters) Active labor at term (Acute) Abnormal ultrasound (Acute) Anxiety (Acute) Umbilical hernia (Acute) Influenza vaccination given (Acute) History of precipitous labor and deliveries, antepartum (Acute) Short interval between pregnancies affecting , antepartum (Acute) (Acute) History of hemorrhage (Acute) Supervision of other normal (Acute) Herpes genitalis (Acute) Anemia (Acute) Echogenic bowel of fetus on ultrasound (Resolved) s/p PPD # 1 1. routine post delivery care 2. breast feeding- support given 3. rh positive 4. rubella immune
[2019-12-30 11:57] LABS: Absolute Neutrophil Count 11.2 X10^3/uL (2.0-7.7); Basophil# 0.04 X10^3/uL; Basophil% 0.3 % (0-1); Eosinophil# 0.02 X10^3/uL; Eosinophils% 0.1 % (0-5); Hematocrit 34.6 % (37-47); Lymphocyte % 18.9 % (19-41); Mean Corp Hgb Conc 31.8 g/dL (32-36); Mean Corpuscular Volume 91.3 fL (81-99); Mean Platelet Vol. 11.5 fl (6.2-12.0); Monocyte# 1.49 X10^3/uL; Monocyte% 9.4 % (0-10); NRBC Flagged by Analyzer 0 % (0-5); Neutrophil % 70.7 % (47-70); Platelet Count 322 K/mm3 (150-450); RBC Distribution Width CV 13.4 % (11.6-14.6); RBC Distribution Width SD 43.9 fl (35.1-43.9); Red Blood Count 3.79 M/mm3 (4.2-5.4); White Blood Count 15.9 K/mm3 (4.4-11.0)
[2019-12-31 01:30] VITALS: BP 103/62; PULSE 57; RESP 18; TEMP 36.4
--- NOTE | 2019-12-31 07:58 | PCM.PN.OB ---
Patient Problems: Active and Suspected Problems (Last Reviewed 12/26/19 @ 10:22 by Arely Masters) Active labor at term (Acute) Subjective: Doing well, no complaints.Pain controlled. Denies CP, SOB, N,V. Ambulating well, tolerating po. Lochia moderate, going well. - Physical Exam Vitals/I&O's: Vital Signs Temp Pulse Resp BP Pulse Ox 97.6 F L 57 L 18 103/62 97 12/31/19 01:30 12/31/19 01:30 12/31/19 01:30 12/31/19 01:30 12/30/19 16:00 Oxygen Delivery Method Room Air Weight: 184 lb Body Mass Index (BMI) 30.6 Intake and Output for Last 24 Hours 12/29/19 12/30/19 12/31/19 23:59 23:59 23:59 Intake Total 1736.67 / 1736.67 Output Total 75 / 75 Balance 1661.67 / 1661.67 General: Alert, Oriented x3 Abdomen: Soft, Non Tender, - - FF below U Laboratory Results 12/30/19 11:37: WBC 15.9 H, RBC 3.79 L, Hgb 11.0 L, Hct 34.6 L, MCV 91.3, MCH 29.0, MCHC 31.8 L, RDW Std Deviation 43.9, RDW Coeff of John 13.4, Plt Count 322, MPV 11.5, Immature Gran % (Auto) 0.600, Neut % (Auto) 70.7 H, Lymph % (Auto) 18.9 L, [place] % (Auto) 9.4, Eos % (Auto) 0.1, Baso % (Auto) 0.3, Absolute Neuts (auto) 11.2 H, Absolute Lymphs (auto) 3.00, Nucleated RBC % 0 Current Medications Acetaminophen (Tylenol) 1,000 mg PO Q8H PRN PRN PRN Reason: Pain Score 1-3/10 Last Admin: 12/30/19 21:48 Dose: 1,000 mg Documented by: Bisacodyl (Dulcolax) 10 mg RECTAL UD PRN PRN Reason: If no BM Dibucaine (Dibucaine) 1 applic TOPICAL TID PRN PRN; Protocol PRN Reason: Discomfort Hydrocortisone (Hytone) 1 applic TOPICAL TID PRN PRN; Protocol PRN Reason: Discomfort Methylergonovine Maleate (Methergine) 0.2 mg IM X1 PRN PRN Reason: Excess bleeding/uterine atony Last Admin: 12/29/19 20:36 Dose: 0.2 mg Documented by: Naproxen (Naprosyn) 500 mg PO Q8H PRN PRN PRN Reason: Pain Score 1-3/10 Last Admin: 12/30/19 15:18 Dose: 500 mg Documented by: Ondansetron HCl (Zofran) 4 mg IV Q4H PRN PRN PRN Reason: Nausea Oxycodone HCl (Oxyir) 5 - 10 mg PO Q4H PRN PRN PRN Reason: Pain Score 4-10/10 Senna/Docusate Sodium (Senokot-S, Nuvia-Colace) 1 - 2 tablet PO DAILY PRN PRN PRN Reason: Constipation Last Admin: 12/30/19 07:57 Dose: 2 tablet Documented by: Simethicone (Mylicon) 80 mg PO PCHS PRN PRN Reason: Indigestion/Stomach pain Sodium Chloride () 5 - 15 ml IV UD PRN PRN Reason: SALINE FLUSH Medical Necessity - Tobacco Use Smoking Status: Former smoker Assessment/Plan All Active Problems (Last Reviewed 12/26/19 @ 10:22 by Arely Masters) Active labor at term (Acute) Abnormal ultrasound (Acute) Anxiety (Acute) Umbilical hernia (Acute) Influenza vaccination given (Acute) History of precipitous labor and deliveries, antepartum (Acute) Short interval between pregnancies affecting , antepartum (Acute) (Acute) History of hemorrhage (Acute) Supervision of other normal (Acute) Herpes genitalis (Acute) Anemia (Acute) Echogenic bowel of fetus on ultrasound (Resolved) s/p PPD # 2 1. routine post delivery care 2. breast feeding- support given 3. rh positive 4. rubella immune 5. home today
[2019-12-31 08:00] VITALS: BP 111/74; PULSE 84; RESP 16; TEMP 36.9
[2019-12-31 08:07] VITALS: BP 111/74; PULSE 84
== END 2019-12-31 10:00 | disposition home or self-care (01) | DRG 806 ==
PROVIDERS: Nurse Practitioner Women's Health; Admitting Provider Obstetrics & Gynecology; Visit Provider Obstetrics & Gynecology
DX: O69.81X0 Labor and delivery complicated by cord around neck, without compression, not applicable or unspecified (principal); O98.313 Other infections with a predominantly sexual mode of transmission complicating pregnancy, third trimester; Z37.0 Single live birth; O99.02 Anemia complicating childbirth; O99.343 Other mental disorders complicating pregnancy, third trimester; F41.9 Anxiety disorder, unspecified; A60.04 Herpesviral vulvovaginitis; O26.893 Other specified pregnancy related conditions, third trimester; M41.9 Scoliosis, unspecified; K42.9 Umbilical hernia without obstruction or gangrene; Z3A.40 40 weeks gestation of pregnancy; Z86.2 Personal history of diseases of the blood and blood-forming organs and certain disorders involving the immune mechanism; Z87.891 Personal history of nicotine dependence; O99.62 Diseases of the digestive system complicating childbirth
CPT/HCPCS: 59050; 85025; 86850; 86900; 86901; 99218; J7120; G0378